=== PATIENT | male | born 1930 | race Caucasian/White ===

== ENCOUNTER 2017-07-13 06:38 | Inpatient (IN) | payer OTHER, MEDICARE ==
[2017-07-13] VITALS (17 sets, daily range): BP systolic 152–180; BP diastolic 89–112; PULSE 88–120; RESP 16–20; TEMP 97.6–97.9; O2SAT 95–99
[~2017-07-13] VITALS: Ht 167.6 cm; Wt 65.2 kg
[~2017-07-13 06:38] MED LIST: ATOR80TA45 PO; B12-1CHW PO; BACT800T5 PO; IBUP-232 PO; LISI-515 PO; METO25TA3 PO; PERC5TAB12 PO; VITA1000 PO; XARE20TA PO
--- NOTE | 2017-07-13 07:11 | PD ---
HPI Chief Complaint: Respiratory Symptoms Time Seen by Provider: 07:07 Travel History International Travel<30 days: No Contact w/Intl Traveler<30days: No Traveled to known affect area: No History of Present Illness HPI This is an 86-year-old male with a history of hypertension, hyperlipidemia, previous pulmonary emboli, who presents today with complaints of shortness of breath progressive over the last several weeks. Patient reports over the last 2 days it has become so severe that he could not sleep last night. Patient denies any chest pain, chest pressure he does report a productive cough but does not know what color his phlegm is but does report blood tinged. He also reports a fever of 101 last night. Patient also reports increasing swelling of his bilateral lower extremities. PFSH Past Medical History Hx Anticoagulant Therapy: Yes (XARELTO) Autoimmune Disease: No Cancer: No Cardiovascular Problems: Yes (CHOL) High Cholesterol: Yes Diabetes: No Diminished Hearing: Yes (Hearing aids) Endocrine: No Gout: Yes Genitourinary: No Hypertension: Yes Immune Disorder: No Musculoskeletal: Yes Neurologic: No Psychiatric: No Reproductive: No Respiratory: Yes (PE) Past Surgical History Appendectomy: Yes Other Surgery: Yes (BACK SX) Social History Alcohol Use: Yes (Rarely) Tobacco Use: No Substance Use: No Allergies-Medications (Allergen,Severity, Reaction): Coded Allergies: No Known Allergies (Verified Adverse Reaction, Unknown, 07/13/17) Reported Meds & Prescriptions Reported Meds & Active Scripts Active Reported Vitamin B-12 ER (Cyanocobalamin) 1,000 Mcg Tab 1,000 Mcg PO DAILY Vitamin D-1000 (Cholecalciferol) 1,000 Unit Tab 5,000 Units PO DAILY Atorvastatin (Atorvastatin Calcium) 80 Mg Tab 80 Mg PO HS Metoprolol Tartrate 25 Mg Tab 25 Mg PO DAILY Lisinopril 20 Mg Tab 20 Mg PO DAILY Review of Systems Except as stated in HPI: all other systems reviewed are Neg General / Constitutional: Positive: Fever, No: Chills HENT: No: Headaches, Neck Pain Cardiovascular: Positive: Tachycardia, No: Chest Pain or Discomfort, Palpitations Respiratory: Positive: Cough, Shortness of Breath Gastrointestinal: No: Nausea, Vomiting, Abdominal Pain Genitourinary: No: Dysuria, Decreased Urinary Output Musculoskeletal: Positive: Weakness, Edema (Bilateral lower extremities, worse on left than right.), No: Pain Neurologic: Positive: Weakness, No: Dizziness, Headache Physical Exam Narrative GENERAL: Well-developed well-nourished male in mild to moderate respiratory discomfort. SKIN: Focused skin assessment warm/dry. HEAD: Atraumatic. Normocephalic. EYES: No scleral icterus. No injection or drainage. ENT: No nasal bleeding or discharge. Mucous membranes pink and moist. NECK: Trachea midline. Supple. CARDIOVASCULAR: Sinus tachycardia with a rate of 115. No murmur appreciated. RESPIRATORY: No accessory muscle use. Clear to auscultation. Breath sounds equal bilaterally. GASTROINTESTINAL: Abdomen soft, non-tender, nondistended. MUSCULOSKELETAL: No obvious deformities. No clubbing. No cyanosis. Bilateral lower extremity pitting edema, slightly worse on left lower extremity than right. NEUROLOGICAL: Awake and alert. No obvious cranial nerve deficits. Motor grossly within normal limits. Normal speech. PSYCHIATRIC: Appropriate mood and affect; insight and judgment normal. Data Data Last Documented VS Vital Signs Date Time Temp Pulse Resp B/P (MAP) Pulse Ox O2 Delivery O2 Flow Rate FiO2 07/13/17 14:00 95 16 160/97 (118) 98 Nasal Cannula 2.00 07/13/17 06:46 97.9 Orders Orders Complete Blood Count With Diff (07/13/17 07:11) Comprehensive Metabolic Panel (07/13/17 07:11) B-Type Natriuretic Peptide (07/13/17 07:11) D-Dimer (07/13/17 07:11) Ckmb (Isoenzyme) Profile (07/13/17 07:11) Troponin I (07/13/17 07:11) Urinalysis - C+S If Indicated (07/13/17 07:11) Iv Access Insert/Monitor (07/13/17 07:11) Ecg Monitoring (07/13/17 07:11) Oximetry (07/13/17 07:11) Oxygen Administration (07/13/17 07:11) Chest, Single Ap (07/13/17 07:11) Sodium Chloride 0.9% Flush (Ns Flush) (07/13/17 07:15) Arterial Blood Gas (Abg) (07/13/17 07:45) Ventilation & Perfusion Scan (07/13/17 ) Lisinopril (Prinivil) (07/13/17 10:30) Metoprolol Tartrate (Lopressor) (07/13/17 10:30) Furosemide Inj (Lasix Inj) (07/13/17 12:30) Admit Order (Ed Use Only) (07/13/17 14:11) Labs Laboratory Tests Test 07/13/17 07:30 07/13/17 07:45 07/13/17 07:53 White Blood Count 3.8 TH/MM3 Red Blood Count 4.24 MIL/MM3 Hemoglobin 12.9 GM/DL Hematocrit 38.5 % Mean Corpuscular Volume 90.8 FL Mean Corpuscular Hemoglobin 30.4 PG Mean Corpuscular Hemoglobin Concent 33.5 % Red Cell Distribution Width 14.5 % Platelet Count 71 TH/MM3 Mean Platelet Volume 8.7 FL Neutrophils (%) (Auto) 67.5 % Lymphocytes (%) (Auto) 18.3 % Monocytes (%) (Auto) 13.4 % Eosinophils (%) (Auto) 0.0 % Basophils (%) (Auto) 0.8 % Neutrophils # (Auto) 2.6 TH/MM3 Lymphocytes # (Auto) 0.7 TH/MM3 Monocytes # (Auto) 0.5 TH/MM3 Eosinophils # (Auto) 0.0 TH/MM3 Basophils # (Auto) 0.0 TH/MM3 CBC Comment AUTO DIFF Differential Comment AUTO DIFF CONFIRMED Platelet Estimate LOW Platelet Morphology Comment NORMAL D-Dimer Quantitative (PE/DVT) 2.63 MG/L FEU Blood Urea Nitrogen 29 MG/DL Creatinine 1.80 MG/DL Random Glucose 93 MG/DL Total Protein 7.0 GM/DL Albumin 3.4 GM/DL Calcium Level 8.7 MG/DL Alkaline Phosphatase 99 U/L Aspartate Amino Transf (AST/SGOT) 27 U/L Alanine Aminotransferase (ALT/SGPT) 20 U/L Total Bilirubin 1.4 MG/DL Sodium Level 138 MEQ/L Potassium Level 4.5 MEQ/L Chloride Level 107 MEQ/L Carbon Dioxide Level 23.1 MEQ/L Anion Gap 8 MEQ/L Estimat Glomerular Filtration Rate 36 ML/MIN Total Creatine Kinase 59 U/L Troponin I 0.18 NG/ML B-Type Natriuretic Peptide 1195 PG/ML Urine Collection Type CLEAN CATCH Urine Color YELLOW Urine Turbidity CLEAR Urine pH 5.5 Urine Specific [place] 1.025 Urine Protein 100 mg/dL Urine Glucose (UA) NEG mg/dL Urine Ketones 15 mg/dL Urine Occult Blood SMALL Urine Nitrite NEG Urine Bilirubin NEG Urine Urobilinogen 0.2 MG/DL Urine Leukocyte Esterase NEG Urine RBC 0-3 /hpf Urine Squamous Epithelial Cells 0-5 /hpf Urine Amorphous Sediment FEW Microscopic Urinalysis Comment CULT NOT INDICATED Urine Collection Time 0745 Blood Gas Puncture Site LT RADIAL Blood Gas Patient Temperature 98.6 Blood Gas HCO3 18 mmol/L Blood Gas Base Excess -5.5 mmol/L Blood Gas Oxygen Saturation 92 % Arterial Blood pH 7.44 Arterial Blood Partial Pressure CO2 27 mmHG Arterial Blood Partial Pressure O2 69 mmHG Arterial Blood Oxygen Content 17.5 Vol % Arterial Blood Carboxyhemoglobin 1.5 % Arterial Blood Methemoglobin 1.1 % Blood Gas Hemoglobin 13.6 G/DL Oxygen Delivery Device ROOM AIR Blood Gas Inspired Oxygen 21 % [facility] Medical Decision Making Medical Screen Exam Complete: Yes Emergency Medical Condition: Yes Differential Diagnosis CHF versus COPD versus pneumonia versus pulmonary embolus Narrative Course 86-year-old male with a history of hypertension, hyperlipidemia, COPD, who presents today with complaints of shortness of breath progressive over last several weeks. Patient's EKG shows no evidence of acute ST elevation or depression. Chest x-ray shows congestive heart failure. Patient's d-dimer was elevated. Troponin was also 0.13. BNP was 1100. VQ scan was ordered secondary to the elevated creatinine. His VQ scan shows a ventilation defect not a perfusion defect. This would be consistent with his CHF. Patient will be admitted to the hospitalist service. Case discussed with Dr. Romeo who agrees with the admission. Diagnosis Primary Impression: New onset CHF Additional Impressions: Renal insufficiency Hypertension Hyperlipidemia Elevated troponin Admitting Information Admitting Physician Requests: Admit Heraclio Fritz MD July 13, 2017 07:11
[2017-07-13] MEDS ORDERED: SODIUM CHLORIDE 0.9% FLUSH 10 ML FLUSH IVF PRN (07:15)
[2017-07-13 07:38] LABS: AUTOMATED NEUTROPHIL # 2.6 TH/MM3 (1.8-7.7); BASOPHIL % 0.8 % (0.0-2.0); HEMATOCRIT 38.5 % (39.0-51.0); HEMOGLOBIN 12.9 GM/DL (13.0-17.0); LYMPH % 18.3 % (9.0-44.0); LYMPHOCYTE # 0.7 TH/MM3 (1.0-4.8); MEAN CELL VOLUME 90.8 FL (80.0-100.0); MEAN CORPUSCULAR HEMOGLOBIN 30.4 PG (27.0-34.0); MEAN CORPUSCULAR HGB CONC 33.5 % (32.0-36.0); MEAN PLATELET VOLUME 8.7 FL (7.0-11.0); MONO % 13.4 % (0.0-8.0); MONOCYTE # 0.5 TH/MM3 (0-0.9); NEUT % 67.5 % (16.0-70.0); PLATELET COUNT 71 TH/MM3 (150-450); RED BLOOD COUNT 4.24 MIL/MM3 (4.50-5.90); RED CELL DISTRIBUTION WIDTH 14.5 % (11.6-17.2); WHITE BLOOD COUNT 3.8 TH/MM3 (4.0-11.0)
--- NOTE | 2017-07-13 07:50 | RADRPT ---
EXAM DATE/TIME: 07/13/2017 07:30 [facility] COMPARISON: CHEST PA & LAT, December 21, 2015, 10:24. INDICATIONS : Short of breath, cough MEDICAL HISTORY : Hypertension. SURGICAL HISTORY : Appendectomy. ENCOUNTER: Initial ACUITY: 1 week PAIN SCORE: 0/10 LOCATION: Bilateral chest FINDINGS: AP upright portable view of the chest demonstrates a moderate-sized left-sided pleural effusion with adjacent compressive atelectasis versus consolidation. The right hemithorax demonstrate a subtle pleu ral effusion with ill-defined reticular airspace density involving predominately pain inferior right hemithorax. The heart size appears mildly enlarged as compared to the prior exam with prominence of t he central pulmonary vasculature. Osseous structures are significant for air range. CONCLUSION: Bilateral pleural effusions, small on the right and moderate on the left. Bilateral air space abnorma lities may be related to congestive heart failure versus secondary to infectious process. Hanna Adkins MD on July 13, 2017 at 7:44 Board Certified Radiologist. This report was verified electronically.
[2017-07-13 07:51] LABS: CHLORIDE 107 MEQ/L (98-107); SODIUM (NA) 138 MEQ/L (136-145)
[2017-07-13] MEDS ORDERED: VITA100022 PO (07:52)
[2017-07-13 07:54] LABS: ALBUMIN 3.4 GM/DL (3.4-5.0); BICARBONATE 23.1 MEQ/L (21.0-32.0); CALCIUM 8.7 MG/DL (8.5-10.1); GLUCOSE,RANDOM 93 MG/DL (74-106)
[2017-07-13 07:55] LABS: BLOOD UREA NITROGEN 29 MG/DL (7-18)
[2017-07-13 07:58] LABS: ALT (GPT) 20 U/L (12-78); AST (GOT) 27 U/L (15-37); GLOMERULAR FILTRATION RATE 36 ML/MIN (>89)
[2017-07-13 07:59] LABS: TOTAL BILIRUBIN ADULT 1.4 MG/DL (0.2-1.0)
[2017-07-13 07:59] LABS: BILIRUBIN, URINE NEG (NEG); BLOOD, URINE SMALL (NEG); GLUCOSE,URINE NEG (NEG); KETONE, URINE 15 mg/dL (NEG); NITRITE,URINE NEG (NEG); PH, URINE 5.5 (5.0-8.5); URINE COLOR YELLOW (YELLW/STRAW); URINE LEUKOCYTE ESTERASE NEG (NEG)
[2017-07-13 08:00] LABS: ALKALINE PHOSPHATASE 99 U/L (45-117)
[2017-07-13 08:02] LABS: TROPONIN I 0.18 NG/ML (0.02-0.05)
[2017-07-13 08:07] LABS: AMORPHOUS SEDIMENT, URINE FEW; RBC, URINE 0-3 /hpf (0-3); SQUAMOUS EPITHELIAL CELL URINE 0-5 /hpf (0-5)
[2017-07-13] MEDS ORDERED: LISINOPRIL 20 MG TAB PO ONE (10:30)
[2017-07-13] MEDS ORDERED: METOPROLOL TARTRATE 25 MG TAB PO ONE (10:30)
[2017-07-13] MEDS ORDERED: FUROSEMIDE 20 MG/2 ML VIAL IV PUSH ONE (12:30)
--- NOTE | 2017-07-13 14:11 | RADRPT ---
EXAM DATE/TIME: 07/13/2017 13:28 [facility] COMPARISON: CHEST SINGLE AP, July 13, 2017, 7:30. INDICATIONS : Short of breath for 3 weeks. DOSE: 8.2 mCi Tc99m MAA IV 1.2 mCi Tc99m DTPA aerosol MEDICAL HISTORY : Hypertension. SURGICAL HISTORY : Fusion, thoracic. ENCOUNTER: Initial ACUITY: 3 weeks PAIN SCALE: 3/10 LOCATION: Bilateral chest TECHNIQUE: Following five minutes of tidal breathing of DTPA aerosol, planar images of the lungs were performed in eight projections. The patient was then injected with MAA, and eight-view perfusio n scan was performed. FINDINGS: Ventilation inhomogeneous with absent ventilation left base. Perfusion is much better than ventilation the large matched ventilation/perfusion defect left base. CONCLUSION: Consolidation left lower lobe. Large ventilation perfusion match. Low to intermediate p robability. Lenny Persaud MD FACR on July 13, 2017 at 14:07 Board Certified Radiologist. This report was verified electronically.
[2017-07-13] MEDS ORDERED: SODIUM CHLORIDE 0.9% FLUSH 10 ML FLUSH IV FLUSH PRN (15:30)
--- NOTE | 2017-07-13 15:43 | HHI.HP ---
HPI Service [facility] Primary Care Physician Shaun Slater MD Admission Diagnosis chf, chronic kidney injury,l elevated troponin, hx of pe Diagnoses: (1) Congestive heart failure Diagnosis: Principal (2) Elevated troponin Diagnosis: Principal Chief Complaint: Lower extremity edema Travel History International Travel<30 Days: No Contact w/Intl Traveler <30 Da: No Traveled to Known Affected Are: No History of Present Illness 86-year-old male with known history of hypertension, hyperlipidemia, gouty arthritis who presented to the hospital because of lower extremity edema, chest tightness, shortness of breath, dyspnea on exertion. Patient states that for over 2-3 weeks he has been experiencing progressive lower extremity edema, dyspnea on exertion, chest discomfort. Patient states that he was evaluated by his medical billing assistant and primary medical doctor within the last 3 weeks as well. States that they have done multiple laboratory studies and they gave him some medication for treatment which he does not know the name of. He indicates that he started developing lower extremity edema with progressive dyspnea on exertion where he used to build walk 30 paces without resting, however now he cannot even get up and walk because he is so short of breath. Patient indicates that he is actually been feeling some pressure in the middle part of his chest without any radiation to the neck, back, shoulder, arm. He has had episodes of nausea, vomiting which he correlates with coughing. He states that he was also experiencing lightheaded dizziness during these last few weeks. Patient does not have a local iso coordinator. He has never been diagnosed with any congestive heart failure or myocardial infarction. Patient denies any previous cardiac workup with stress testing. Patient was concerned about his symptoms that were not get any better so he came to emergency department for evaluation. Workup did indicate significant swelling in his lower extremities, JVD, chest x-ray with pulmonary edema, bilateral effusions, mildly elevated troponin level. Because of those reasons is recommended patient be admitted for further evaluation and management. Review of Systems Respiratory: COMPLAINS OF: Cough, Hemoptysis, Shortness of breath Cardiovascular: COMPLAINS OF: Chest pain, Dyspnea on Exertion, Lower Extremity Edema Except as stated in HPI: all other systems reviewed are Neg Past Family Social History Past Medical History Hypertension Hyperlipidemia Gout History of pulmonary emboli Past Surgical History Appendectomy Reported Medications Reported Meds & Active Scripts Active Reported Vitamin B-12 ER (Cyanocobalamin) 1,000 Mcg Tab 1,000 Mcg PO DAILY Vitamin D-1000 (Cholecalciferol) 1,000 Unit Tab 5,000 Units PO DAILY Atorvastatin (Atorvastatin Calcium) 80 Mg Tab 80 Mg PO HS Metoprolol Tartrate 25 Mg Tab 25 Mg PO DAILY Lisinopril 20 Mg Tab 20 Mg PO DAILY Allergies: Coded Allergies: No Known Allergies (Verified Adverse Reaction, Unknown, 07/13/17) Family History Reviewed is significant for father having lung cancer, mother with vaginal cancer Social History Patient does have history of smoking back between 89 and 22. He does drink alcohol occasionally. Denies any illicit drug Physical Exam Vital Signs Vital Signs Date Time Temp Pulse Resp B/P (MAP) Pulse Ox O2 Delivery O2 Flow Rate FiO2 07/13/17 15:29 95 18 164/91 (115) 97 Nasal Cannula 2.00 07/13/17 14:00 95 16 160/97 (118) 98 Nasal Cannula 2.00 07/13/17 13:00 92 98 Nasal Cannula 2.00 07/13/17 13:00 90 16 167/100 (122) 07/13/17 11:58 88 16 158/97 (117) 98 Nasal Cannula 2.00 07/13/17 11:15 93 16 152/94 (113) 98 Nasal Cannula 2.00 07/13/17 11:04 99 16 98 Nasal Cannula 2.00 07/13/17 10:30 108 16 179/108 (131) 98 Nasal Cannula 2.00 07/13/17 09:43 109 18 178/100 (126) 97 Nasal Cannula 2.00 07/13/17 09:15 110 18 98 Nasal Cannula 2.00 07/13/17 09:15 111 16 180/109 (132) 98 Nasal Cannula 2.00 07/13/17 08:10 107 18 177/112 (133) 99 Nasal Cannula 2.00 07/13/17 07:43 18 98 Nasal Cannula 2.00 07/13/17 07:43 98 Nasal Cannula 2.00 07/13/17 07:15 115 18 95 Room Air 07/13/17 07:13 18 95 07/13/17 06:46 97.9 120 20 176/99 (124 96 Physical Exam GENERAL: Well-developed, well-nourished, in no acute distress. alert and orientated HEENT: Head is normocephalic without any lesions or masses noted. Facial features are symmetric. Eyes: Pupils equal round reactive to light. Extraocular muscles are intact. Conjunctivae were clear. Oropharyngeal: Pharynx without any erythema edema. Tongue is midline without deviation. Buccal mucosa is moist without any masses or lesions NECK: Supple without any masses. Trachea midline no deviation. No bruits are appreciated, JVD noted CARDIAC: Regular rhythm, regular rate. S1/S2 are heard. No murmurs gallops or rubs. LUNGS: Crackles noted bilaterally. No wheeze, rhonchi. No use of accessory muscles on inspiration or expiration. ABDOMEN: Soft, nontender. Nondistended. Bowel sounds heard in all 4 quadrants. No organomegaly or masses. Negative rebound, negative guarding EXTREMITIES: 3+ pitting edema noted bilaterally in the lower extremities, pulses are equal bilaterally. No cyanosis or clubbing NEUROLOGY: Mood and affect appear appropriate. Cranial nerves II through XII grossly intact. Muscle strength 5/5 in upper and lower extremities bilaterally. Deep tendon reflexes are 2+ in upper and lower extremities bilaterally. Laboratory Laboratory Tests Test 07/13/17 07:30 07/13/17 07:45 07/13/17 07:53 White Blood Count 3.8 Red Blood Count 4.24 Hemoglobin 12.9 Hematocrit 38.5 Mean Corpuscular Volume 90.8 Mean Corpuscular Hemoglobin 30.4 Mean Corpuscular Hemoglobin Concent 33.5 Red Cell Distribution Width 14.5 Platelet Count 71 Mean Platelet Volume 8.7 Neutrophils (%) (Auto) 67.5 Lymphocytes (%) (Auto) 18.3 Monocytes (%) (Auto) 13.4 Eosinophils (%) (Auto) 0.0 Basophils (%) (Auto) 0.8 Neutrophils # (Auto) 2.6 Lymphocytes # (Auto) 0.7 Monocytes # (Auto) 0.5 Eosinophils # (Auto) 0.0 Basophils # (Auto) 0.0 CBC Comment AUTO DIFF Differential Comment AUTO DIFF CONFIRMED Platelet Estimate LOW Platelet Morphology Comment NORMAL D-Dimer Quantitative (PE/DVT) 2.63 Blood Urea Nitrogen 29 Creatinine 1.80 Random Glucose 93 Total Protein 7.0 Albumin 3.4 Calcium Level 8.7 Alkaline Phosphatase 99 Aspartate Amino Transf (AST/SGOT) 27 Alanine Aminotransferase (ALT/SGPT) 20 Total Bilirubin 1.4 Sodium Level 138 Potassium Level 4.5 Chloride Level 107 Carbon Dioxide Level 23.1 Anion Gap 8 Estimat Glomerular Filtration Rate 36 Total Creatine Kinase 59 Troponin I 0.18 B-Type Natriuretic Peptide 1195 Urine Collection Type CLEAN CATCH Urine Color YELLOW Urine Turbidity CLEAR Urine pH 5.5 Urine Specific [place] 1.025 Urine Protein 100 Urine Glucose (UA) NEG Urine Ketones 15 Urine Occult Blood SMALL Urine Nitrite NEG Urine Bilirubin NEG Urine Urobilinogen 0.2 Urine Leukocyte Esterase NEG Urine RBC 0-3 Urine Squamous Epithelial Cells 0-5 Urine Amorphous Sediment FEW Microscopic Urinalysis Comment CULT NOT INDICATED Urine Collection Time 0745 Blood Gas Puncture Site LT RADIAL Blood Gas Patient Temperature 98.6 Blood Gas HCO3 18 Blood Gas Base Excess -5.5 Blood Gas Oxygen Saturation 92 Arterial Blood pH 7.44 Arterial Blood Partial Pressure CO2 27 Arterial Blood Partial Pressure O2 69 Arterial Blood Oxygen Content 17.5 Arterial Blood Carboxyhemoglobin 1.5 Arterial Blood Methemoglobin 1.1 Blood Gas Hemoglobin 13.6 Oxygen Delivery Device ROOM AIR Blood Gas Inspired Oxygen 21 Result Diagram: 07/13/17 0730 07/13/17 0730 Imaging Last Impressions Chest X-Ray 07/13/17 0711 Signed Impressions: Service Date/Time: Thursday, July 13, 2017 07:30 - CONCLUSION: Bilateral pleural effusions, small on the right and moderate on the left. Bilateral air space abnormalities may be related to congestive heart failure versus secondary to infectious process. Hanna Adkins MD Lung Scan- Nuclear Medicine 07/13/17 0000 Signed Impressions: Service Date/Time: Thursday, July 13, 2017 13:28 - CONCLUSION: Consolidation left lower lobe. Large ventilation perfusion match. Low to intermediate probability. Lenny Persaud MD FACR Caprini VTE Risk Assessment Caprini VTE Risk Assessment: Mod/High Risk (score >= 2) Caprini Risk Assessment Model Point Value = 1 Point Value = 2 Point Value = 3 Point Value = 5 Age 41-60 Minor surgery BMI > 25 kg/m2 Swollen legs Varicose veins or History of unexplained or recurrent spontaneous Oral contraceptives or hormone replacement Sepsis (< 1 month) Serious lung disease, including pneumonia (< 1 month) Abnormal pulmonary function Acute myocardial infarction Congestive heart failure (< 1 month) History of inflammatory bowel disease Medical patient at bed rest Age 61-74 Arthroscopic surgery Major open surgery (> 45 min) Laparoscopic surgery (> 45 min) Malignancy Confined to bed (> 72 hours) Immobilizing plaster cast Central venous access Age >= 75 History of VTE Family history of VTE Factor V Leiden Prothrombin [id number] Lupus anticoagulant Anticardiolipin antibodies Elevated serum homocysteine Heparin-induced thrombocytopenia Other congenital or acquired thrombophilia Stroke (< 1 month) Elective arthroplasty Hip, pelvis, or leg fracture Acute spinal cord injury (< 1 month) Prophylaxis Regimen Total Risk Factor Score Risk Level Prophylaxis Regimen 0-1 Low Early ambulation 2 Moderate Order ONE of the following: *Sequential Compression Device (SCD) *Heparin 5000 units SQ BID 3-4 Higher Order ONE of the following medications: *Heparin 5000 units SQ TID *Enoxaparin/Lovenox 40 mg SQ daily (WT < 150 kg, CrCl > 30 mL/min) *Enoxaparin/Lovenox 30 mg SQ daily (WT < 150 kg, CrCl > 10-29 mL/min) *Enoxaparin/Lovenox 30 mg SQ BID (WT < 150 kg, CrCl > 30 mL/min) AND/OR *Sequential Compression Device (SCD) 5 or more Highest Order ONE of the following medications: *Heparin 5000 units SQ TID (Preferred with Epidurals) *Enoxaparin/Lovenox 40 mg SQ daily (WT < 150 kg, CrCl > 30 mL/min) *Enoxaparin/Lovenox 30 mg SQ daily (WT < 150 kg, CrCl > 10-29 mL/min) *Enoxaparin/Lovenox 30 mg SQ BID (WT < 150 kg, CrCl > 30 mL/min) AND *Sequential Compression Device (SCD) Assessment and Plan Assessment and Plan Acute congestive heart failure, new onset -Chest x-ray does indicate bilateral pleural effusions, bilateral ill space abnormalities related to congestive heart failure -Patient with physical findings of lower extremity edema, JVD -BNP 1195 -Patient also has mild troponin elevation, could possible be underlying myocardial infarction -We will continue Lasix 40 mg IV every 12 hours -Obtain echocardiogram -Continue beta-nancy, ANTELMO inhibitor, add Nitropaste -Consult cardiology for recommendations Troponin elevation -EKGs do indicate some abnormality with show inverted T waves in V1, V5, V6. No previous EKGs to compare -Continue to trend cardiac enzymes and EKGs -Patient be started on aspirin, continue beta-nancy, ANTELMO inhibitor, statin, Nitropaste -Await cardiology recommendations Chronic kidney disease stage III, appears to be stable -Continue to monitor renal function -Avoid nephrotoxic medication Hypertension, hyperlipidemia, -Home medications continued History of pulmonary emboli -VQ scan shows ventilation defect, however no perfusion defect. This would go along with the congestive heart failure with low probability for pulmonary emboli DVT prevention -Sequential compression devices Physician Certification 2 Midnight Certification Type: Admission for Inpatient Services Order for Inpatient Services The services are ordered in accordance with Medicare regulations or non- Medicare payer requirements, as applicable. In the case of services not specified as inpatient-only, they are appropriately provided as inpatient services in accordance with the 2-midnight benchmark. Estimated LOS (days): 3 days is the estimated time the patient will need to remain in the hospital, assuming treatment plan goals are met and no additional complications. Post-Hospital Plan: Not yet determined Ronald Vega July 13, 2017 15:43
[2017-07-13] MEDS ORDERED: MAGNESIUM HYDROXIDE SUSP 30 ML CUP PO PRN (15:45)
[2017-07-13] MEDS ORDERED: CALCIUM CARBONATE 500 MG CHEWABLE TAB CHEW PRN (15:45)
[2017-07-13] MEDS ORDERED: ACETAMINOPHEN 325 MG TAB PO PRN (15:45)
[2017-07-13] MEDS ORDERED: DOCUSATE SODIUM 100 MG CAP PO PRN (15:45)
[2017-07-13] MEDS ORDERED: ONDANSETRON HCL 4 MG/2 ML VIAL IV PUSH PRN (15:45)
[2017-07-13] MEDS ORDERED: TEMAZEPAM 15 MG CAP PO PRN (15:45)
[2017-07-13] MEDS: FUROSEMIDE 40 MG/4 ML VIAL IVP SCH (18:24)
[2017-07-13] MEDS: NITROGLYCERIN 2% OINT 1 GM PACKET TOPICAL SCH ×2 (18:24→23:00)
[2017-07-13] MEDS ORDERED: POTASSIUM CHLORIDE 20 MEQ CONTROLLED RELEASE TAB PO SCH (21:00)
[2017-07-13] MEDS: SODIUM CHLORIDE 0.9% FLUSH 10 ML FLUSH IV FLUSH SCH (22:59)
[2017-07-13] MEDS: ATORVASTATIN 40 MG TAB PO SCH (22:59)
[2017-07-13] MEDS: METOPROLOL TARTRATE 25 MG TAB PO SCH (23:00)
[2017-07-13] MEDS: POTASSIUM CHLORIDE 20 MEQ CONTROLLED RELEASE TAB PO SCH (23:00)
[2017-07-14] VITALS (9 sets, daily range): BP systolic 118–148; BP diastolic 77–92; PULSE 85–112; RESP 15–18; TEMP 97.6–99.3; O2SAT 92–98
[2017-07-14] MEDS: NITROGLYCERIN 2% OINT 1 GM PACKET TOPICAL SCH ×4 (06:07→23:29)
[2017-07-14 08:02] LABS: CALCIUM 8.9 MG/DL (8.5-10.1)
[2017-07-14 08:03] LABS: BICARBONATE 25.1 MEQ/L (21.0-32.0); MAGNESIUM 1.7 MG/DL (1.5-2.5)
[2017-07-14] MEDS ORDERED: METOPROLOL TARTRATE 25 MG TAB PO SCH (09:00)
[2017-07-14] MEDS ORDERED: ASPIRIN 81 MG CHEW TAB CHEW SCH (09:00)
--- NOTE | 2017-07-14 09:17 | HHI.PR ---
Subjective Remarks Patient seen and examined today for follow-up on non-ST elevated myocardial infarction, new onset congestive heart failure, shortness of breath, peripheral edema. Patient is laying in bed comfortable. States that he still getting short of breath whenever he gets up to ambulate. Still with lower extremity edema. Vital signs are stable, patient remains afebrile Objective Vitals Vital Signs Date Time Temp Pulse Resp B/P (MAP) Pulse Ox O2 Delivery O2 Flow Rate FiO2 07/14/17 09:04 97.8 96 18 133/79 (97) 98 07/14/17 04:00 99.0 85 15 147/92 (110) 98 07/14/17 00:00 97.8 112 15 147/92 (110) 92 07/13/17 20:30 109 07/13/17 20:02 95 Nasal Cannula 2.00 07/13/17 20:00 97.6 105 17 152/89 (110) 95 07/13/17 16:45 97.7 104 20 179/99 (125) 96 07/13/17 16:30 07/13/17 15:30 97 Nasal Cannula 2.00 07/13/17 15:29 95 18 164/91 (115) 97 Nasal Cannula 2.00 07/13/17 15:00 85 16 97 Nasal Cannula 2.00 07/13/17 14:00 95 16 160/97 (118) 98 Nasal Cannula 2.00 07/13/17 13:00 92 98 Nasal Cannula 2.00 07/13/17 13:00 90 16 167/100 (122) 07/13/17 11:58 88 16 158/97 (117) 98 Nasal Cannula 2.00 07/13/17 11:15 93 16 152/94 (113) 98 Nasal Cannula 2.00 07/13/17 11:04 99 16 98 Nasal Cannula 2.00 07/13/17 10:30 108 16 179/108 (131) 98 Nasal Cannula 2.00 07/13/17 09:43 109 18 178/100 (126) 97 Nasal Cannula 2.00 07/13/17 09:15 110 18 98 Nasal Cannula 2.00 07/13/17 09:15 111 16 180/109 (132) 98 Nasal Cannula 2.00 I/O 07/13/17 07/13/17 07/13/17 07/14/17 07/14/17 07/14/17 07:00 15:00 23:00 07:00 15:00 23:00 Intake Total 240 ml Output Total 600 ml Balance -360 ml Intake Oral 240 ml Output Urine Total 600 ml # Voids 2 2 # Bowel Movements 1 Result Diagram: 07/13/17 0730 07/14/17 0700 Objective Remarks GENERAL: Well-developed, well-nourished, in no acute distress. alert and orientated HEENT: Head is normocephalic without any lesions or masses noted. Facial features are symmetric. Eyes: Extraocular muscles are intact. Conjunctivae were clear. NECK: Supple without any masses. Trachea midline no deviation. No JVD, CARDIAC: Regular rhythm, regular rate. S1/S2 are heard. 2/6 ejection murmur noted in the mitral region, no gallops or rubs. LUNGS: Clear to auscultation bilaterally. No wheeze, rhonchi or rales. No use of accessory muscles on inspiration or expiration. ABDOMEN: Soft, nontender. Nondistended. Bowel sounds heard in all 4 quadrants. No organomegaly or masses. Negative rebound, negative guarding EXTREMITIES: 2+ bilateral lower extremity edema, pulses are equal bilaterally. No cyanosis or clubbing NEUROLOGY: Mood and affect appear appropriate. Cranial nerves II through XII grossly intact. Moving all extremities, speech is clear Urinary Catheter: No Vascular Central Line Catheter: No A/P Assessment and Plan Acute congestive heart failure, new onset -Chest x-ray does indicate bilateral pleural effusions, bilateral ill space abnormalities related to congestive heart failure -Patient with physical findings of lower extremity edema, JVD -BNP 1195 -Patient also has mild troponin elevation, could possible be underlying myocardial infarction -Continue Lasix 40 mg IV every 12 hours -Awaiting echocardiogram -Continue beta-nancy, ANTELMO inhibitor, Nitropaste -Consult cardiology for recommendations -Chiropractor Sole Practitioner requesting school physical therapist evaluation due to history of PE and pleural effusions Non-ST elevated myocardial infarction -EKGs do indicate some abnormality with show inverted T waves in V1, V5, V6. No previous EKGs to compare -Cardiac enzymes continue to be elevated. 0.22 -Continue aspirin, beta-nancy, ANTELMO inhibitor, statin, Nitropaste -Cardiology evaluated the patient Chronic kidney disease stage III, appears to be stable -Continue to monitor renal function -Avoid nephrotoxic medication -Cardiology consulted nephrology for evaluation. Hypertension, hyperlipidemia, -Home medications continued History of pulmonary emboli -VQ scan shows ventilation defect, however no perfusion defect. This would go along with the congestive heart failure with low probability for pulmonary emboli DVT prevention -Sequential compression devices Ronald Vega July 14, 2017 09:17
[2017-07-14] MEDS: METOPROLOL TARTRATE 25 MG TAB PO SCH ×2 (09:26→21:16)
[2017-07-14] MEDS: POTASSIUM CHLORIDE 20 MEQ CONTROLLED RELEASE TAB PO SCH ×2 (09:26→21:17)
[2017-07-14] MEDS: LISINOPRIL 20 MG TAB PO SCH (09:26)
[2017-07-14] MEDS: SODIUM CHLORIDE 0.9% FLUSH 10 ML FLUSH IV FLUSH SCH ×2 (09:27→20:00)
[2017-07-14] MEDS: FUROSEMIDE 40 MG/4 ML VIAL IVP SCH (09:27)
--- NOTE | 2017-07-14 09:59 | MB ---
cc: Fred rByant MD DATE: 07/14/2017 REASON FOR CONSULTATION: Evaluation of congestive heart failure. HISTORY OF PRESENT ILLNESS: This is an 86-year-old man with multiple medical problems. He has hypertension and a history of ITP, hyperlipidemia, gout, and had a pulmonary embolism 12/2015. He has been coughing up blood for the past week and a half and has been seeing Dr. Danielson as an outpatient. He has been having shortness of breath for months. He has been having lower extremity edema for a few weeks. Shortness of breath has gotten worse and so he decided to come into the hospital. He has a large left pleural effusion by chest x-ray. He has peripheral edema. He also has some intermittent chest pressure and a troponin is mildly elevated. He has had weight loss. PAST MEDICAL HISTORY: Includes hypertension, ITP, hyperlipidemia, gout, pulmonary embolism 2015, weakness of the left leg. PAST SURGICAL HISTORY: Back surgery, previous appendectomy. FAMILY HISTORY: Positive for lung cancer in the father. Vaginal cancer in the mother. SOCIAL HISTORY: He quit smoking at age 22. 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 PHYSICAL EXAMINATION: GENERAL: Well-developed, well-nourished man in no acute distress. HEENT: Unremarkable. NECK: I do not see obvious neck vein distention. There are no bruits. CHEST: Shows diminished breath sounds at the left base. CARDIAC: S1, S2, regular rate and rhythm. I do not hear an S3. ABDOMEN: Soft. EXTREMITIES: Reveal 1-2+ edema. LABORATORY DATA: Chest x-ray is very abnormal. See report. There is a left lower lobe effusion. Hematocrit 38.5. Creatinine is 2, and it was 1.8 on the , it was 2 in 12/2015. Troponins 0.20 and 0.22. Magnesium 1.7. D-dimer is elevated at 2.63. He had a V/Q scan read as matched ventilation perfusion defect left base. CTA was not performed. IMPRESSION: Severely ill 86-year-old man short of breath, lower extremity edema, mildly elevated troponin, history of pulmonary embolism with hemoptysis, indeterminate V/Q scan, elevated creatinine. RECOMMENDATIONS: Would like to get pulmonary and renal consultation. Concerned that he may have had a recent or fresh PE. V/Q scan not helpful. I am not able to do CTA with elevated creatinine. We will get a stat echo to assess his LV function. I am not sure how much of this is heart failure, how much of this could be a possible pulmonary embolism. Platelet count is only 71,000. Not a good candidate for catheterization due to ITP and elevated creatinine. He is on an ANTELMO inhibitor. We will see if renal thinks that should be stopped or continued. Further therapy to be determined. Fred Bryant MD VEW/TL , 09:05 AM , 09:58 AM
--- NOTE | 2017-07-14 13:49 | PD.CONS ---
[facility] Service Nephrology Consult Requested By Dr. Bryant Reason for Consult Acute renal failure Primary Care Physician Shaun Slater MD History of Present Illness Patient is a 86-year-old male with known history of hypertension, hyperlipidemia , hx pulmonary emboli not on anticoagulation, and gouty arthritis. He presented to emergency room for shortness of breath, lower extremity edema, and chest tightness. Nephrology is consulted for elevated creatinine of 2.0 today and on admission creatinine of 1.80. Patient reports that he has been told that he has chronic kidney disease for over 5 years. He is followed by Dr. Joel outpatient and was seen about 2 months ago. Per records patient has a creatinine of 1.6 in December 2015. So he is perhaps close to baseline. Potassium is normal. Chest Xray with bilateral pleural effusions, small on the right and moderate on the left. Bilateral air space abnormalities may be related to congestive heart failure versus secondary to infectious process. With history of pulmonary embolism and symptoms VQ scan was done showing low to intermediate probability. (Prisca Hall) Review of Systems Constitutional: COMPLAINS OF: Fatigue Respiratory: COMPLAINS OF: Hemoptysis, Sputum production, Shortness of breath Cardiovascular: COMPLAINS OF: Lower Extremity Edema Gastrointestinal: DENIES: Constipation, Diarrhea, Nausea, Vomiting Genitourinary: DENIES: Urgency, Dysuria, Nocturia (Prisca Hall) Past Family Social History Allergies: Coded Allergies: No Known Allergies (Verified Adverse Reaction, Unknown, 07/13/17) Past Medical History Hypertension Hyperlipidemia Gout History of pulmonary emboli Past Surgical History Back surgery Appendectomy Active Ordered Medications Current Medications Medications (Trade) Dose Ordered Sig/Mari Route Start Time Stop Time Status Last Admin (NS Flush) 2 ml BID IV FLUSH 07/13/17 21:00 07/14/17 09:27 (NS Flush) 2 ml UNSCH PRN IV FLUSH 07/13/17 15:30 (Lasix Inj) 40 mg BID@ IVP 07/13/17 18:00 07/14/17 09:27 (Aspirin Chew) 81 mg DAILY CHEW 07/14/17 09:00 07/14/17 09:26 (Lipitor) 80 mg HS PO 07/13/17 21:00 07/13/17 22:59 (Prinivil) 20 mg DAILY PO 07/14/17 09:00 07/14/17 09:26 (Tylenol) 650 mg Q4H PRN PO 07/13/17 15:45 (Zofran Inj) 4 mg Q6H PRN IV PUSH 07/13/17 15:45 (Colace) 100 mg BID PRN PO 07/13/17 15:45 (Milk Of Magnesia Liq) 30 ml DAILY PRN PO 07/13/17 15:45 (Tums Chew) 1,000 mg TID PRN CHEW 07/13/17 15:45 (Restoril) 15 mg HS PRN PO 07/13/17 15:45 (Nitroglycerin 2% Oint) 0.5 inch Q6HR TOPICAL 07/13/17 18:00 07/14/17 12:43 (Lopressor) 25 mg BID PO 07/13/17 21:00 07/14/17 09:26 (KCl) 20 meq Q12HR PO 07/13/17 21:00 07/14/17 09:26 Family History Father having lung cancer, mother with vaginal cancer Social History Quit smoking in his 's Occasional ETOH use Lives with (Prisca Hall) Physical Exam Vital Signs Vital Signs Date Time Temp Pulse Resp B/P (MAP) Pulse Ox O2 Delivery O2 Flow Rate FiO2 07/14/17 13:13 98.9 87 18 118/77 (91) 98 07/14/17 13:02 97 Nasal Cannula 2.00 07/14/17 09:04 97.8 96 18 133/79 (97) 98 07/14/17 04:00 99.0 85 15 147/92 (110) 98 07/14/17 00:00 97.8 112 15 147/92 (110) 92 07/13/17 20:30 109 07/13/17 20:02 95 Nasal Cannula 2.00 07/13/17 20:00 97.6 105 17 152/89 (110) 95 07/13/17 16:45 97.7 104 20 179/99 (125) 96 07/13/17 16:30 07/13/17 15:30 97 Nasal Cannula 2.00 07/13/17 15:29 95 18 164/91 (115) 97 Nasal Cannula 2.00 07/13/17 15:00 85 16 97 Nasal Cannula 2.00 07/13/17 14:00 95 16 160/97 (118) 98 Nasal Cannula 2.00 Physical Exam GENERAL: alert and oriented SKIN: Warm and dry. HEAD: Normocephalic. EYES: No scleral icterus. No injection or drainage. NECK: Supple, trachea midline. No JVD or lymphadenopathy. CARDIOVASCULAR: Regular rate and rhythm without murmurs, gallops, or rubs. RESPIRATORY: Breath sounds with rhonchi equal bilaterally. No accessory muscle use. GASTROINTESTINAL: Abdomen soft, non-tender, nondistended. MUSCULOSKELETAL: No cyanosis. Mild lower extremity edema BACK: Nontender without obvious deformity. No CVA tenderness. Laboratory Laboratory Tests Test 07/13/17 15:40 07/13/17 21:35 07/14/17 07:00 Total Creatine Kinase 55 80 Troponin I 0.20 0.22 Blood Urea Nitrogen 36 Creatinine 2.00 Random Glucose 125 Calcium Level 8.9 Magnesium Level 1.7 Sodium Level 136 Potassium Level 4.0 Chloride Level 101 Carbon Dioxide Level 25.1 Anion Gap 10 Estimat Glomerular Filtration Rate 32 (Prisca Hall) Result Diagram: 07/13/17 0730 07/14/17 0700 Imaging Last Impressions Chest X-Ray 07/13/17 0711 Signed Impressions: Service Date/Time: Thursday, July 13, 2017 07:30 - CONCLUSION: Bilateral pleural effusions, small on the right and moderate on the left. Bilateral air space abnormalities may be related to congestive heart failure versus secondary to infectious process. Hanna Adkins MD Lung Scan- Nuclear Medicine 07/13/17 0000 Signed Impressions: Service Date/Time: Thursday, July 13, 2017 13:28 - CONCLUSION: Consolidation left lower lobe. Large ventilation perfusion match. Low to intermediate probability. Lenny Persaud MD FACR (Prisca Hall) Assessment and Plan Problem List: (1) Renal insufficiency ICD Codes: N28.9 - Disorder of kidney and ureter, unspecified Status: Acute Plan: Elevated creatinine of 2.0 today and on admission creatinine of 1.80. He is followed by Dr. Joel outpatient and was seen about 2 months ago. Per records patient has a creatinine of 1.6 in December 2015. So he is perhaps close to baseline. Has chronic kidney disease from possible hypertension or renovascular disease. Proteinuria noted. Will order renal scan Continue lisinopril patient is perhaps close to baseline Continue lasix BID still has lower extremity edema Monitor Urinary output and BMP Dr. Joel to follow up tomorrow. (2) Hypertension ICD Codes: I10 - Essential (primary) hypertension Status: Acute Plan: Continue current medication regimen (3) Congestive heart failure ICD Codes: I50.9 - Heart failure, unspecified Plan: Cardiology consulted ECHO planned for tomorrow (4) Pleural effusion ICD Codes: J90 - Pleural effusion, not elsewhere classified Plan: Pulmonary consulted and managing. (Prisca Hall) Problem List: (1) Renal insufficiency ICD Codes: N28.9 - Disorder of kidney and ureter, unspecified Status: Acute Plan: Elevated creatinine of 2.0 today and on admission creatinine of 1.80. He is followed by Dr. Joel outpatient and was seen about 2 months ago. Per records patient has a creatinine of 1.6 in December 2015. So he is perhaps close to baseline. Has chronic kidney disease from possible hypertension or renovascular disease. Proteinuria noted. Will order renal scan Continue lisinopril patient is perhaps close to baseline Continue lasix BID still has lower extremity edema Monitor Urinary output and BMP Dr. Joel to follow up tomorrow. Patient seen and examined, agree with above. Continue diuretics and follow the BMP. (2) Hypertension ICD Codes: I10 - Essential (primary) hypertension Status: Acute Plan: Continue current medication regimen (3) Congestive heart failure ICD Codes: I50.9 - Heart failure, unspecified Plan: Cardiology consulted ECHO planned for tomorrow (4) Pleural effusion ICD Codes: J90 - Pleural effusion, not elsewhere classified Plan: Pulmonary consulted and managing. (Eren Vaughan MD) Prisca Hall July 14, 2017 13:49 Eren Vaughan MD July 15, 2017 10:44
[2017-07-14 13:58] LABS: CHOLESTEROL/ HDL RATIO 3.12 RATIO; HDL CHOLESTEROL 40.6 MG/DL (40.0-60.0)
--- NOTE | 2017-07-14 15:18 | MB ---
cc: Honey Stanton MD,Damien Bryant,Fred James MD DATE: 07/14/2017 HISTORY OF PRESENT ILLNESS: Mr. Villalba is an 86-year-old white male who presented with hemoptysis of rather sudden onset, although he has been gradually declining over the last several weeks, possibly even several months. He presented with some chest discomfort on the left side. Chest x-ray revealed a large left pleural effusion and a ventilation perfusion scan was performed because his creatinine was 2 and he had a history of pulmonary embolism in 2016, but that is not definitive because he has got a large matched defect at the left base. Otherwise, perfusion is normal. The patient also had an elevated troponin. Cardiology has seen him. BNP was also elevated to over 1000, although he has no evidence of clinical heart failure. The patient's complaints actually go back several months. He has been gradually more short of breath, has had some increased edema in both legs. Nonproductive cough until yesterday when he developed hemoptysis, but it was mixed with some sputum. It was blood streaked. There were no large blood clots. He is on no anticoagulation. In 2016, he presented here after a long road trip with a right lower lobe pulmonary embolism. He was anticoagulated for about 6 months and then that was discontinued. At present, he is sitting up in his bed, very comfortable. He is on room air, having no chest pain. No recurrent hemoptysis here in the hospital, and comfortable at rest without shortness of breath. No chest pain today. Swelling has diminished. PAST MEDICAL HISTORY: Hypertension, ITP. He cannot recall the director emergency services's name. Hyperlipidemia, history of gout, pulmonary embolism as noted above. PAST SURGICAL HISTORY: He has had a previous back surgery and an appendectomy when he was young. FAMILY HISTORY: Positive for lung cancer in his father. Mother had or gynecologic cancer. Son here in the room with him in good health. SOCIAL HISTORY: , living with his . Smoked a few years in his youth, quit at 22. 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 No significant alcohol use. No recent travel. REVIEW OF SYSTEMS: No headache. No chest pain. No notable fever. He has been gradually more short of breath over time, has had intermittent dizziness and lightheadedness. No current GI symptoms. Swelling in his legs, both legs. No pain. MEDICATIONS: Aspirin 81 mg, lisinopril, a statin, Lopressor, Lasix, nitroglycerin ointment. PHYSICAL EXAMINATION: GENERAL: The patient is awake, alert, very comfortable. No shortness of breath at rest currently. VITAL SIGNS: O2 saturation on 2 liters 98%, temperature is 98, pulse is 80, respirations 18, blood pressure 118/77. HEENT: Sclerae are anicteric. Mucous membranes are moist. NECK: His neck veins are flat. There is no adenopathy in the neck or supraclavicular region. CHEST: Diminished at the left base with some minor congestion. No wheezes. The right lung is clear. HEART: Regular rhythm. No harsh murmur. No audible S3. ABDOMEN: Soft. No hepatosplenomegaly or mass palpable. EXTREMITIES: Very minimal peripheral edema. No calf tenderness. No cyanosis or clubbing. DISCUSSION: Mr. Villalba presents with increased shortness of breath over weeks to months, gradual increase in lower extremity edema and hemoptysis yesterday, which brought him to the hospital. Chest x-ray with a large left pleural effusion. D-dimer is elevated. Troponin is mildly elevated. BNP is markedly elevated. The picture is unclear. Cardiology is seeing him to see if there is any evidence of ischemia. In addition, he may have underlying pneumonia. He could certainly have a left lower lobe malignancy hidden behind his fluid. He may have recurrent thromboembolism. It is not clear. I have reviewed this with the hospitalist. We will do Dopplers today to see if there is any evidence of DVT. I have also spoken to radiology. We need to proceed first thing in the morning with drainage of the left chest and then either a CT scan or a CTA depending on the results of the Dopplers today. We need to see what is going on in that left lower lobe, as he could have an underlying malignancy. We are going to give him gentle hydration in light of the elevated creatinine. I am going to hold the Lasix today as he is clearly not in any significant symptomatic congestive heart failure, and I do not want the creatinine to bump between now and tomorrow. Depending on the results, he also needs a thoracentesis. I have ordered that to put that into the computer, and I have also talked to radiology so they do that first thing in the morning. He has actually seen Dr. Danielson as an outpatient prior to this admission. He will follow up tomorrow. Further diagnostic and/or therapeutic intervention will depend on these results. I have thoroughly reviewed this with the patient and his family, explained to them that we are looking for answers. These tests are necessary for that purpose, although there are some risks, both from the thoracentesis and for that matter, from dye administration for the CTA if we have to proceed with that. R. MD ABBY Mahtew/JETHRO , 02:48 PM , 03:17 PM
[2017-07-14] MEDS: SODIUM CHLOR 0.9% 1000 ML INJ 1,000 ML IV SCH (15:58)
--- NOTE | 2017-07-14 17:17 | EKG ---
Date Performed: 07/13/2017 Time Performed: 21:33:10 PTAGE: 86 years EKG: SINUS TACHYCARDIA WITH OCCASIONAL SUPRAVENTRICULAR PREMATURE COMPLEXES POSSIBLE LEFT ATRIAL ENLARGEMENT MODERATE INTRAVENTRICULAR CONDUCTION DELAY ST DEVIATION AND MODERATE T-WAVE ABNORMALITY ABNORMAL ECG PREVIOUS TRACING : 07/13/2017 15.03 Since the previous tracing, no significant change noted DOCTOR: To Marcus Interpretating Date/Time 07/14/2017 17:16:24
--- NOTE | 2017-07-14 17:38 | EKG ---
Date Performed: 07/13/2017 Time Performed: 15:03:31 PTAGE: 86 years EKG: Sinus rhythm WITH SHORT AL INTERVAL WITH OCCASIONAL SUPRAVENTRICULAR PREMATURE COMPLEXES POSSIBLE LEFT ATRIAL ENL ARGEMENT MODERATE INTRAVENTRICULAR CONDUCTION DELAY ST DEVIATION AND MODERATE T-WAVE ABNORMALITY ABNO RMAL ECG NO PREVIOUS TRACING DOCTOR: To Marcus Interpretating Date/Time 07/14/2017 17:37:21
--- NOTE | 2017-07-14 19:03 | RADRPT ---
EXAM DATE/TIME: 07/14/2017 18:02 [facility] COMPARISON: No previous studies available for comparison. INDICATIONS : Increased BUN/Creatnine. MEDICAL HISTORY : Hypercholesterolemia. Hypertension. Hearing aids. Bifocals. Anticoagulant therapy, xarelto. Dyspnea . GOUT. Arthritis. SURGICAL HISTORY : Appendectomy. Back surgery. ENCOUNTER: Initial ACUITY: 1 day PAIN SCORE: 0/10 LOCATION: Bilateral flank MEASUREMENTS: RIGHT KIDNEY: 8.9 x 4.6 x 4.8 cm LEFT KIDNEY: 9.4 x 5.3 x 5.5 cm FINDINGS: RIGHT KIDNEY: Renal cortex is normal in thickness and increased echotexture. No hydronephrosis or mass. 6 mm ech ogenic structure. Right pleural effusion. LEFT KIDNEY: Renal cortex is normal in thickness and increased echotexture. No hydronephrosis, stone, or mass. L eft pleural effusion. BLADDER: Within normal limits given the degree of distension. CONCLUSION: 1. Pleural effusions. 2. Possible 6 mm right renal calculus. 3. Echogenic kidneys which can be seen with medical renal disease. Meng Potter MD on July 14, 2017 at 18:59 Board Certified Radiologist. This report was verified electronically.
--- NOTE | 2017-07-14 19:05 | RADRPT ---
EXAM DATE/TIME: 07/14/2017 18:18 [facility] COMPARISON: No previous studies available for comparison. INDICATIONS : Bilateral leg swelling. MEDICAL HISTORY : Hypercholesterolemia. Hypertension. Pulmonary Embolism. Anticoagulant therapy, Xarelto. Dyspnea. GOUT. Arthritis. SURGICAL HISTORY : Appendectomy. Back surgery. ENCOUNTER: Initial ACUITY: 2 day PAIN SCORE: 0/10 LOCATION: Bilateral legs. TECHNIQUE: Venous ultrasound of the left and right leg was performed from the inguinal ligament to the proximal calf. Real-time, color Doppler and spectral tracing, compression and augmentation techniques were us ed. FINDINGS: RIGHT LEG: There is normal compressibility of the deep venous system from the inguinal region to the proximal ca lf. No echogenic clot is seen in the lumen of the common femoral, femoral, popliteal, and posterior tibial veins. There is a normal response of the venous system to proximal and distal augmentation an d respiration. LEFT LEG: There is normal compressibility of the deep venous system from the inguinal region to the proximal ca lf. No echogenic clot is seen in the lumen of the common femoral, femoral, popliteal, and posterior tibial veins. There is a normal response of the venous system to proximal and distal augmentation an d respiration. CONCLUSION: No DVT in either lower extremity. Meng Potter MD on July 14, 2017 at 19:02 Board Certified Radiologist. This report was verified electronically.
[2017-07-14] MEDS: ATORVASTATIN 40 MG TAB PO SCH (21:17)
[2017-07-15] VITALS (10 sets, daily range): BP systolic 105–161; BP diastolic 62–95; PULSE 82–100; RESP 16–20; TEMP 96.2–100; O2SAT 95–98
[2017-07-15] MEDS: NITROGLYCERIN 2% OINT 1 GM PACKET TOPICAL SCH ×3 (04:50→17:45)
[2017-07-15 07:17] LABS: HEMATOCRIT 40.9 % (39.0-51.0); HEMOGLOBIN 13.7 GM/DL (13.0-17.0); MEAN CELL VOLUME 91.5 FL (80.0-100.0); MEAN CORPUSCULAR HEMOGLOBIN 30.6 PG (27.0-34.0); MEAN CORPUSCULAR HGB CONC 33.5 % (32.0-36.0); MEAN PLATELET VOLUME 9.2 FL (7.0-11.0); PLATELET COUNT 98 TH/MM3 (150-450); RED BLOOD COUNT 4.48 MIL/MM3 (4.50-5.90); RED CELL DISTRIBUTION WIDTH 14.6 % (11.6-17.2); WHITE BLOOD COUNT 4.7 TH/MM3 (4.0-11.0)
[2017-07-15 07:21] LABS: INTERNATIONAL NORMALIZED RATIO 1.2 RATIO; PROTHROMBIN TIME - PATIENT 12.1 SEC (9.8-11.6)
[2017-07-15 07:24] LABS: BICARBONATE 26.1 MEQ/L (21.0-32.0); CALCIUM 8.6 MG/DL (8.5-10.1)
[2017-07-15 07:28] LABS: CREATININE 1.9 MG/DL (0.60-1.30)
--- NOTE | 2017-07-15 07:59 | HHI.PR ---
Subjective Remarks Patient seen and examined today for follow-up on shortness of breath, NSTEMI, pleural effusion. Patient states that he is doing well. Still get short of breath. Swelling has improved. Awaiting further testing today. Vital signs are stable, patient remains afebrile. Objective Vitals Vital Signs Date Time Temp Pulse Resp B/P (MAP) Pulse Ox O2 Delivery O2 Flow Rate FiO2 07/15/17 04:45 99.6 90 18 116/70 (85) 95 07/15/17 00:40 99.9 82 16 143/91 (108) 96 07/14/17 20:40 99.3 98 16 128/80 (96) 98 07/14/17 20:00 101 07/14/17 19:57 97 Nasal Cannula 2.00 07/14/17 17:29 97.6 89 18 148/83 (104) 95 07/14/17 13:13 98.9 87 18 118/77 (91) 98 07/14/17 13:02 97 Nasal Cannula 2.00 07/14/17 09:04 97.8 96 18 133/79 (97) 98 I/O 07/14/17 07/14/17 07/14/17 07/15/17 07/15/17 07/15/17 07:00 15:00 23:00 07:00 15:00 23:00 Intake Total 642 ml Balance 642 ml Intake Oral 120 ml IV Total 522 ml # Voids 2 4 Result Diagram: 07/15/17 0640 07/15/17 0640 Objective Remarks GENERAL: Well-developed, well-nourished, in no acute distress. alert and orientated HEENT: Head is normocephalic without any lesions or masses noted. Facial features are symmetric. Eyes: Extraocular muscles are intact. Conjunctivae were clear. NECK: Supple without any masses. Trachea midline no deviation. No JVD, CARDIAC: Regular rhythm, regular rate. S1/S2 are heard. 2/6 ejection murmur noted in the mitral region, no gallops or rubs. LUNGS: Clear to auscultation bilaterally. No wheeze, rhonchi or rales. No use of accessory muscles on inspiration or expiration. ABDOMEN: Soft, nontender. Nondistended. Bowel sounds heard in all 4 quadrants. No organomegaly or masses. Negative rebound, negative guarding EXTREMITIES: 1+ bilateral lower extremity edema, pulses are equal bilaterally. No cyanosis or clubbing NEUROLOGY: Mood and affect appear appropriate. Cranial nerves II through XII grossly intact. Moving all extremities, speech is clear Urinary Catheter: No Vascular Central Line Catheter: No A/P Assessment and Plan Acute congestive heart failure, new onset -Chest x-ray does indicate bilateral pleural effusions, bilateral ill space abnormalities related to congestive heart failure -Patient with physical findings of lower extremity edema, JVD -BNP 1195 -Patient also has mild troponin elevation, could possible be underlying myocardial infarction -Continue Lasix 40 mg IV every 12 hours -Awaiting echocardiogram -Continue beta-nancy, ANTELMO inhibitor, Nitropaste -Consult cardiology for recommendations -[employer] 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 No previous EKGs to compare -Cardiac enzymes continue to be elevated. 0.22 -Continue aspirin, beta-nancy, ANTELMO inhibitor, statin, Nitropaste -Cardiology evaluated the patient Pleural effusion, unknown whether transudative versus exudative -Early Intervention Specialist following the patient -Early Intervention Specialist recommending thoracentesis with fluid studies -Early Intervention Specialist discussed with the radiologist who plans on doing ultrasound- guided thoracentesis this morning Chronic kidney disease stage III, appears to be stable -Continue to monitor renal function -Avoid nephrotoxic medication -Cardiology consulted nephrology for evaluation. -Early Intervention Specialist recommended low-dose IV fluids in order to help with kidney function Hypertension, hyperlipidemia, -Home medications continued History of pulmonary emboli -VQ scan shows ventilation defect, however no perfusion defect. This would go along with the congestive heart failure with low probability for pulmonary emboli -Lower extremity ultrasound did not indicate any DVTs -Early Intervention Specialist wants CT pulmonary angiogram performed to rule out pulmonary emboli, he discussed it with radiology concerning the renal functions DVT prevention -Sequential compression devices Ronald Vega July 15, 2017 07:58
[2017-07-15] MEDS: METOPROLOL TARTRATE 25 MG TAB PO SCH ×2 (08:18→22:25)
[2017-07-15] MEDS: LISINOPRIL 20 MG TAB PO SCH (08:18)
[2017-07-15] MEDS: POTASSIUM CHLORIDE 20 MEQ CONTROLLED RELEASE TAB PO SCH ×2 (08:18→22:25)
[2017-07-15] MEDS: SODIUM CHLORIDE 0.9% FLUSH 10 ML FLUSH IV FLUSH SCH ×2 (08:19→21:00)
--- NOTE | 2017-07-15 08:59 | PD.RAD ---
Post US Procedure Prog Note Pre Procedure Diagnosis: (1) Pleural effusion Post Procedure Diagnosis: (1) Pleural effusion Procedure Date: July 15, 2017 Supervising Radiologist: Shola Ricketts Proceduralist/Assist: Ial Cyr RDMS Estimated blood loss: minimal Anesthesia: Local Plan of Activity Patient to Unit: Other Patient Condition: Fair See PACS Report for procedural detail/treatment Drainage Procedure Procedure 1 Imaging Guidance: Ultrasound Side: Left Procedure Type: Thoracentesis Drainage: Suction Fluid Removal (CCs): 1100 Fluid Description: Clear, Yellow Plan post procedure cxr then monitor for 30 minutes and return to floor. Shola Ricketts MD July 15, 2017 08:59
[2017-07-15] MEDS ORDERED: IODIXANOL 320 MG/ML 10 ML VIAL (for Rad CT) IVCONTRAST ONE (09:23)
--- NOTE | 2017-07-15 09:23 | RADRPT ---
EXAM DATE/TIME: 07/15/2017 08:57 [facility] COMPARISON: CHEST SINGLE AP, July 13, 2017, 7:30. INDICATIONS : Post left side thoracentesis. MEDICAL HISTORY : Hypertension. Hypercholesterolemia SURGICAL HISTORY : Appendectomy. ENCOUNTER: Subsequent ACUITY: 3 days PAIN SCORE: 0/10 LOCATION: Left chest FINDINGS: Single view thorax demonstrates cardiomegaly. The left-sided effusion has been drained. There are mil d atelectatic changes within the left lung base. There is minimal effusion seen at the right base. Th ere are diffuse chronic interstitial changes within the pulmonary parenchyma. There is a very small loculated area of pneumothorax seen at the left lung base. This measures only a pproximately 5 mm in thickness and is localized along the lateral inferior margin of the left lung. The visualized bony structures are grossly intact. CONCLUSION: 1. Complete interval drainage of the patient's left pleural effusion. 2. There is a very minimal loculated area of pneumothorax seen at the left lung base. Napoleon Persaud MD on July 15, 2017 at 9:18 Board Certified Radiologist. This report was verified electronically.
[2017-07-15] MEDS ORDERED: LIDOCAINE HCL 1% 20 ML VIAL SQ ONE (09:34)
--- NOTE | 2017-07-15 09:42 | RADRPT ---
EXAM DATE/TIME: 07/15/2017 09:09 [facility] COMPARISON: CT PULMONARY ANGIOGRAM, December 21, 2015, 11:23. INDICATIONS : Short of breath. History of pulmonary embolism. IV CONTRAST: 50 cc Visipaque (iodixanol) IV RADIATION DOSE: 10.63 CTDIvol (mGy) MEDICAL HISTORY : Hypercholesterolemia. Hypertension. Pulmonary embolism. Anticoagulant therapy. Chronic kidney disease stage 3. SURGICAL HISTORY : Appendectomy. Back surgery. ENCOUNTER: Initial ACUITY: 3 days PAIN SCALE: 0/10 LOCATION: chest TECHNIQUE: Volumetric scanning of the chest was performed using a pulmonary embolism protocol MIP images were re constructed. Using automated exposure control and adjustment of the mA and/or kV according to patien t size, radiation dose was kept as low as reasonably achievable to obtain optimal diagnostic quality images. DICOM format image data is available electronically for review and comparison. Follow-up recommendations for detected pulmonary nodules are based at a minimum on nodule size and pa tient risk factors according to Fleischner Society Guidelines. FINDINGS: PULMONARY ARTERIES: No filling defects are seen in the pulmonary arteries through the segmental level. LUNGS: Patchy airspace consolidation in the lingula and left lower lobe as well as the inferior left upper l obe near the major fissure. Mild associated bronchiectasis. Minimal patchy groundglass opacities in t he right lung base. PLEURAE: Small simple density right-sided pleural effusion. MEDIASTINUM: The multiple subcentimeter mediastinal nodes with the largest measuring up to 9 mm in the AP window. Moderate coronary calcifications. Mild four-chamber cardiac enlargement. MUSCULOSKELETAL: Degenerative spondylosis of the thoracic spine. MISCELLANEOUS: The visualized upper abdominal organs demonstrate no acute abnormality. CONCLUSION: 1. No CT evidence for pulmonary artery embolism through the segmental level. 2. Patchy airspace consolidation in the left upper lobe inferiorly, lingula and left lower lobe alcides rning for multilobar pneumonia versus aspiration. 3. Small simple density right pleural effusion with associated right lower lobe compressive atelectas is. 4. Subcentimeter mediastinal adenopathy likely reactive/infectious in etiology. 5. Coronary artery calcifications with mild four-chamber cardiac enlargement. Freddy Lincoln MD on July 15, 2017 at 9:27 Board Certified Radiologist. This report was verified electronically.
[2017-07-15 11:21] LABS: PLEURAL FLUID LYMPHS 44 %; PLEURAL FLUID MESOTHELIAL 32 %; PLEURAL FLUID MONOS 22 %; PLEURAL FLUID POLYS (SEGS) 2 %; PLEURAL FLUID RBC 2320 /MM3 (0-0); PLEURAL FLUID WBC 331 /MM3 (0-10)
[2017-07-15] MEDS: SODIUM CHLOR 0.9% 1000 ML INJ 1,000 ML IV SCH (13:07)
[2017-07-15 14:31] LABS: TOTAL PROTEIN,PLEURAL FLUID 2.1 GM/DL
[2017-07-15] MEDS: LEVOFLOXACIN 500 MG TAB PO SCH (15:32)
[2017-07-15] MEDS: RESP: ALBUTEROL 2.5 MG/IPRATROPIUM 0.5 MG NEB (SCH) NEB ×2 (16:30→19:16)
--- NOTE | 2017-07-15 17:14 | PD.CARD.PN ---
Subjective Subjective Remarks Pt resting comfortably though says no change in dyspnea. Objective Medications Current Medications Medications (Trade) Dose Ordered Sig/Mari Route Start Time Stop Time Status Last Admin (NS Flush) 2 ml BID IV FLUSH 07/13/17 21:00 07/15/17 08:19 (NS Flush) 2 ml UNSCH PRN IV FLUSH 07/13/17 15:30 (Lasix Inj) 40 mg BID@09,18 IVP 07/13/17 18:00 Future Hold 07/14/17 09:27 (Aspirin Chew) 81 mg DAILY CHEW 07/14/17 09:00 Future Hold 07/14/17 09:26 (Lipitor) 80 mg HS PO 07/13/17 21:00 07/14/17 21:17 (Prinivil) 20 mg DAILY PO 07/14/17 09:00 07/15/17 08:18 (Tylenol) 650 mg Q4H PRN PO 07/13/17 15:45 (Zofran Inj) 4 mg Q6H PRN IV PUSH 07/13/17 15:45 (Colace) 100 mg BID PRN PO 07/13/17 15:45 (Milk Of Magnesia Liq) 30 ml DAILY PRN PO 07/13/17 15:45 (Tums Chew) 1,000 mg TID PRN CHEW 07/13/17 15:45 (Restoril) 15 mg HS PRN PO 07/13/17 15:45 (Nitroglycerin 2% Oint) 0.5 inch Q6HR TOPICAL 07/13/17 18:00 07/15/17 13:05 (Lopressor) 25 mg BID PO 07/13/17 21:00 07/15/17 08:18 (KCl) 20 meq Q12HR PO 07/13/17 21:00 07/15/17 08:18 Sodium Chloride 1,000 ml @ 42 mls/hr [id number] IV 07/14/17 14:30 07/15/17 13:07 (Levaquin) 500 mg Q48H PO 07/15/17 14:00 07/15/17 15:32 (Duoneb Neb) 1 ampule QID NEB NEB 07/15/17 16:00 Vital Signs / I&O Vital Signs Date Time Temp Pulse Resp B/P (MAP) Pulse Ox O2 Delivery O2 Flow Rate FiO2 07/15/17 16:30 98 Nasal Cannula 2.00 07/15/17 16:00 100.0 91 18 122/71 (88) 98 07/15/17 12:00 98.6 90 18 134/69 (90) 97 07/15/17 09:30 96.2 98 20 161/95 (117) 96 07/15/17 08:00 92 07/15/17 08:00 97.3 84 20 156/83 (107) 98 07/15/17 04:45 99.6 90 18 116/70 (85) 95 07/15/17 00:40 99.9 82 16 143/91 (108) 96 07/14/17 20:40 99.3 98 16 128/80 (96) 98 07/14/17 20:00 101 07/14/17 19:57 97 Nasal Cannula 2.00 07/14/17 17:29 97.6 89 18 148/83 (104) 95 I/O 07/14/17 07/14/17 07/14/17 07/15/17 07/15/17 07/15/17 07:00 15:00 23:00 07:00 15:00 23:00 Intake Total 642 ml 252 ml Balance 642 ml 252 ml Intake Oral 120 ml IV Total 522 ml 252 ml # Voids 2 4 Physical Exam GENERAL: This is a well-nourished, well-developed patient, in no apparent distress. CARDIOVASCULAR: Regular rate and rhythm without murmurs, gallops, or rubs. RESPIRATORY: Clear to auscultation. Breath sounds equal bilaterally. No wheezes , rales, or rhonchi. GASTROINTESTINAL: Abdomen soft, non-tender, nondistended. Normal active bowel sounds MUSCULOSKELETAL: Extremities without clubbing, cyanosis, or edema. NEURO: Alert & Oriented x4 to person, place, time, situation. Moves all ext x4 Laboratory Laboratory Tests Test 07/14/17 23:30 07/15/17 06:40 07/15/17 08:56 Urine Osmolality 375 MOSM/KG White Blood Count 4.7 TH/MM3 Red Blood Count 4.48 MIL/MM3 Hemoglobin 13.7 GM/DL Hematocrit 40.9 % Mean Corpuscular Volume 91.5 FL Mean Corpuscular Hemoglobin 30.6 PG Mean Corpuscular Hemoglobin Concent 33.5 % Red Cell Distribution Width 14.6 % Platelet Count 98 TH/MM3 Mean Platelet Volume 9.2 FL Prothrombin Time 12.1 SEC Prothromb Time International Ratio 1.2 RATIO Activated Partial Thromboplast Time 30.7 SEC Blood Urea Nitrogen 38 MG/DL Creatinine 1.90 MG/DL Random Glucose 96 MG/DL Calcium Level 8.6 MG/DL Lactate Dehydrogenase 242 U/L Sodium Level 137 MEQ/L Potassium Level 3.8 MEQ/L Chloride Level 101 MEQ/L Carbon Dioxide Level 26.1 MEQ/L Anion Gap 10 MEQ/L Estimat Glomerular Filtration Rate 34 ML/MIN Pleural Fluid pH 8.0 Pleural Fluid WBC 331 /MM3 Pleural Fluid RBC 2320 /MM3 Pleural Fluid Neutrophils 2 % Pleural Fluid Lymphocytes 44 % Pleural Fluid Monocytes 22 % Pleural Fluid Mesothelial Cells 32 % Pleural Fluid Total Protein 2.1 GM/DL Pleural Fluid LDH 67 U/L Pleural Fluid Glucose 100 MG/DL Imaging Last 24 hours Impressions Chest X-Ray 07/15/17 0000 Signed Impressions: Service Date/Time: Saturday, July 15, 2017 08:57 - CONCLUSION: 1. Complete interval drainage of the patient's left pleural effusion. 2. There is a very minimal loculated area of pneumothorax seen at the left lung base. Napoleon Persaud MD CT Angiography 07/15/17 0000 Signed Impressions: Service Date/Time: Saturday, July 15, 2017 09:09 - CONCLUSION: 1. No CT evidence for pulmonary artery embolism through the segmental level. 2. Patchy airspace consolidation in the left upper lobe inferiorly, lingula and left lower lobe concerning for multilobar pneumonia versus aspiration. 3. Small simple density right pleural effusion with associated right lower lobe compressive atelectasis. 4. Subcentimeter mediastinal adenopathy likely reactive/infectious in etiology. 5. Coronary artery calcifications with mild four-chamber cardiac enlargement. Freddy Lincoln MD Assessment and Plan Problem List: (1) Elevated troponin ICD Codes: R74.8 - Abnormal levels of other serum enzymes Status: Acute Plan: nonspecific particularly given EKATERINA; no symptoms c/w ACS; possibly from chf, though not clear, echo pending. Would favor a nuc stress at some point, though probably not with active pneumonia. (2) Congestive heart failure ICD Codes: I50.9 - Heart failure, unspecified Plan: somewhat unclear, elevated bnp though w/ EKATERINA; didn't particularly improve symptom sanders despite diuresis, echo pending. IV lasix was stopped, he doesn't seem particularly overloaded so will not restart at this time, await echo. (3) Pneumonia ICD Codes: J18.9 - Pneumonia, unspecified organism Plan: By ct scan, on abx (4) Pleural effusion ICD Codes: J90 - Pleural effusion, not elsewhere classified Plan: now s/p thoracentesis, though pt says no improvement in symptoms. Assessment and Plan At this time it seems his symptoms are most likey pulmonary in origin, echo report pending. I will ask one of my partners to see tomorrow. Kush Vale MD July 15, 2017 17:14
--- NOTE | 2017-07-15 17:34 | ECHRPT ---
Indication: HEART FAILURE CONCLUSIONS Normal left ventricular size. Mild concentric left ventricular hypertrophy. The left ventricular systolic function is moderately reduced with an estimated ejection fraction in the range of 40-45%. Meab-de-yznnrmxr mitral valve regurgitation. Aortic valve sclerosis is present. Mild aortic valve regurgitation. There is trace tricuspid valve regurgitation. The estimated pulmonary arterial pressure is 40 mmHg. Mild pulmonary valve regurgitation. BP: 134 / 69 HR: 90 Rhythm: Sinus MEASUREMENTS (Male / Female) Normal Values Technical Quality:Fair 2D ECHO LV Diastolic Diameter PLAX 4.5 cm 4.2 - 5.9 / 3.9 - 5.3 cm LV Systolic Diameter PLAX 3.2 cm IVS Diastolic Thickness 1.3 cm 0.6 - 1.0 / 0.6 - 0.9 cm LVPW Diastolic Thickness 1.3 cm 0.6 - 1.0 / 0.6 - 0.9 cm LV Relative Wall Thickness 0.6 RV Internal Dim ED PLAX 2.0 cm LVOT Diameter 2.4 cm Aortic Root Diameter 3.5 cm LA Systolic Diameter LX 3.5 cm 3.0 - 4.0 / 2.7 - 3.8 cm M-MODE AV Cusp Separation MM 1.5 cm DOPPLER AV Peak Velocity 146.0 cm/s AV Peak Gradient 8.5 mmHg AV Mean Gradient 5.0 mmHg AV Velocity Time Integral 28.6 cm LVOT Peak Velocity 120.0 cm/s LVOT Peak Gradient 5.8 mmHg LVOT Velocity Time Integral 17.7 cm AV Area Cont Eq vti 2.8 cm AV Area Cont Eq pk 3.7 cm Mitral E Point Velocity 89.8 cm/s Mitral A Point Velocity 38.5 cm/s Mitral E to A Ratio 2.3 LV E' Lateral Velocity 4.2 cm/s Mitral E to LV E' Lateral Ratio 21.5 LV E' Septal Velocity 4.0 cm/s Mitral E to LV E' Septal Ratio 22.4 TR Peak Velocity 274.0 cm/s TR Peak Gradient 30.0 mmHg Right Atrial Pressure 10.0 mmHg Pulmonary Artery Systolic Pressu 40.0 mmHg Right Ventricular Systolic Press 40.0 mmHg PV Peak Velocity 44.4 cm/s PV Peak Gradient 0.8 mmHg FINDINGS LEFT VENTRICLE Normal left ventricular size. Mild concentric left ventricular hypertrophy. The left ventricular systolic function is moderately reduced with an estimated ejection fraction in the range of 40-45%. RIGHT VENTRICLE Normal right ventricular size and systolic function. LEFT ATRIUM The left atrial size is normal. RIGHT ATRIUM The right atrial size is normal. ATRIAL SEPTUM No atrial level shunt is demonstrated by color flow Doppler interrogation. AORTA The aortic root and proximal ascending aorta are normal in size on limited imaging. MITRAL VALVE [id number] mitral valve regurgitation. AORTIC VALVE Aortic valve sclerosis is present. Mild aortic valve regurgitation. TRICUSPID VALVE There is trace tricuspid valve regurgitation. The estimated pulmonary arterial pressure is 40 mmHg. PULMONARY VALVE Mild pulmonary valve regurgitation. VESSELS The inferior vena cava is normal in size. PERICARDIUM No pericardial effusion. Mahendra Foote MD, FACC, [facility] [place] (Electronically Signed) Final Date:15 Jul 2017 17:33
[2017-07-15] MEDS: ATORVASTATIN 40 MG TAB PO SCH (22:25)
[2017-07-16] VITALS (9 sets, daily range): BP systolic 95–123; BP diastolic 57–69; PULSE 80–92; RESP 19–20; TEMP 96.5–99.3; O2SAT 96–99
[2017-07-16] MEDS: NITROGLYCERIN 2% OINT 1 GM PACKET TOPICAL SCH ×4 (00:46→12:56)
[2017-07-16 06:52] LABS: AUTOMATED NEUTROPHIL # 3.5 TH/MM3 (1.8-7.7); BASOPHIL % 0.3 % (0.0-2.0); HEMATOCRIT 36.7 % (39.0-51.0); HEMOGLOBIN 11.6 GM/DL (13.0-17.0); LYMPH % 15.3 % (9.0-44.0); LYMPHOCYTE # 0.8 TH/MM3 (1.0-4.8); MEAN CELL VOLUME 91.7 FL (80.0-100.0); MEAN CORPUSCULAR HEMOGLOBIN 28.9 PG (27.0-34.0); MEAN CORPUSCULAR HGB CONC 31.5 % (32.0-36.0); MEAN PLATELET VOLUME 8.9 FL (7.0-11.0); MONO % 11.3 % (0.0-8.0); MONOCYTE # 0.6 TH/MM3 (0-0.9); NEUT % 73.1 % (16.0-70.0); PLATELET COUNT 72 TH/MM3 (150-450); RED BLOOD COUNT 3.99 MIL/MM3 (4.50-5.90); RED CELL DISTRIBUTION WIDTH 14.5 % (11.6-17.2); WHITE BLOOD COUNT 4.9 TH/MM3 (4.0-11.0)
[2017-07-16 07:23] LABS: BICARBONATE 23.5 MEQ/L (21.0-32.0); CALCIUM 7.7 MG/DL (8.5-10.1); CREATININE 1.7 MG/DL (0.60-1.30); MAGNESIUM 1.7 MG/DL (1.5-2.5)
[2017-07-16] MEDS: RESP: ALBUTEROL 2.5 MG/IPRATROPIUM 0.5 MG NEB (SCH) NEB ×4 (08:49→19:40)
[2017-07-16] MEDS: SODIUM CHLORIDE 0.9% FLUSH 10 ML FLUSH IV FLUSH SCH ×2 (09:00→20:50)
[2017-07-16] MEDS: POTASSIUM CHLORIDE 20 MEQ CONTROLLED RELEASE TAB PO SCH ×2 (09:11→20:48)
[2017-07-16] MEDS: LISINOPRIL 20 MG TAB PO SCH (09:11)
[2017-07-16] MEDS: METOPROLOL TARTRATE 25 MG TAB PO SCH ×2 (09:11→20:48)
--- NOTE | 2017-07-16 10:31 | HHI.PR ---
Subjective Remarks Patient seen and examined today for follow-up on shortness of breath, NSTEMI, pleural effusion. Patient seen and examined, sitting up in chair comfortably on 2LNC. at bedside. Patient states that he is much improved. Participating with PT, mild SOB with exertion. Vital signs are stable, patient remains afebrile. Objective Vitals Vital Signs Date Time Temp Pulse Resp B/P (MAP) Pulse Ox O2 Delivery O2 Flow Rate FiO2 07/16/17 08:54 98 Nasal Cannula 2.00 07/16/17 08:00 98.7 87 20 113/64 (80) 97 07/16/17 04:06 97.5 85 20 95/57 (70) 97 07/16/17 00:09 99.3 92 20 102/59 (73) 96 07/15/17 20:15 99.8 100 20 105/62 (76) 96 07/15/17 20:00 99 07/15/17 19:16 97 Nasal Cannula 2.00 07/15/17 16:30 98 Nasal Cannula 2.00 07/15/17 16:00 100.0 91 18 122/71 (88) 98 07/15/17 12:00 98.6 90 18 134/69 (90) 97 I/O 07/15/17 07/15/17 07/15/17 07/16/17 07/16/17 07/16/17 07:00 15:00 23:00 07:00 15:00 23:00 Intake Total 642 ml 252 ml 480 ml 120 ml Balance 642 ml 252 ml 480 ml 120 ml Intake Oral 120 ml 480 ml 120 ml IV Total 522 ml 252 ml # Voids 4 3 0 Result Diagram: 07/16/17 0532 07/16/17 0532 Imaging Last Impressions Chest X-Ray 07/15/17 0000 Signed Impressions: Service Date/Time: Saturday, July 15, 2017 08:57 - CONCLUSION: 1. Complete interval drainage of the patient's left pleural effusion. 2. There is a very minimal loculated area of pneumothorax seen at the left lung base. Napoleon Persaud MD CT Angiography 07/15/17 0000 Signed Impressions: Service Date/Time: Saturday, July 15, 2017 09:09 - CONCLUSION: 1. No CT evidence for pulmonary artery embolism through the segmental level. 2. Patchy airspace consolidation in the left upper lobe inferiorly, lingula and left lower lobe concerning for multilobar pneumonia versus aspiration. 3. Small simple density right pleural effusion with associated right lower lobe compressive atelectasis. 4. Subcentimeter mediastinal adenopathy likely reactive/infectious in etiology. 5. Coronary artery calcifications with mild four-chamber cardiac enlargement. Freddy Lincoln MD Renal Ultrasound 07/14/17 0000 Signed Impressions: Service Date/Time: Friday, July 14, 2017 18:02 - CONCLUSION: 1. Pleural effusions. 2. Possible 6 mm right renal calculus. 3. Echogenic kidneys which can be seen with medical renal disease. Meng Potter MD Lower Extremity Ultrasound 07/14/17 0000 Signed Impressions: Service Date/Time: Friday, July 14, 2017 18:18 - CONCLUSION: No DVT in either lower extremity. Meng Potter MD Lung Scan-VQ Nuclear Medicine 07/13/17 0000 Signed Impressions: Service Date/Time: Thursday, July 13, 2017 13:28 - CONCLUSION: Consolidation left lower lobe. Large ventilation perfusion match. Low to intermediate probability. Lenny Persaud MD FACR Objective Remarks GENERAL: Well-developed, well-nourished, in no acute distress. alert and orientated HEENT: Head is normocephalic without any lesions or masses noted. Facial features are symmetric. Eyes: Extraocular muscles are intact. Conjunctivae were clear. NECK: Supple without any masses. Trachea midline no deviation. No JVD, CARDIAC: Regular rhythm, regular rate. S1/S2 are heard. 2/6 ejection murmur noted in the mitral region, no gallops or rubs. LUNGS: Clear to auscultation bilaterally. No wheeze, rhonchi or rales. No use of accessory muscles on inspiration or expiration. ABDOMEN: Soft, nontender. Nondistended. Bowel sounds heard in all 4 quadrants. No organomegaly or masses. Negative rebound, negative guarding EXTREMITIES: Trace bilateral lower extremity edema, pulses are equal bilaterally. No cyanosis or clubbing NEUROLOGY: Mood and affect appear appropriate. Cranial nerves II through XII grossly intact. Moving all extremities, speech is clear A/P Problem List: (1) Congestive heart failure ICD Code: I50.9 - Heart failure, unspecified (2) Elevated troponin ICD Code: R74.8 - Abnormal levels of other serum enzymes Status: Acute Assessment and Plan Acute congestive heart failure, new onset -Chest x-ray does indicate bilateral pleural effusions, bilateral ill space abnormalities related to congestive heart failure -Patient with physical findings of lower extremity edema, JVD. -BNP 1195 -Patient also has mild troponin elevation, could possible be underlying myocardial infarction -Continue Lasix 40 mg IV every 12 hours -Echocardiogram with moderate left ventricular systolic function reduction EF 40 -45%. -Continue beta-nancy, ANTELMO inhibitor, Nitropaste -Cardiology following for recommendations. 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 No previous EKGs to compare -Cardiac enzymes continue to be elevated. 0.22 -Continue aspirin, beta-nancy, ANTELMO inhibitor, statin, Nitropaste -Cardiology evaluated the patient Pleural effusion, exudative -Aircraft Tool Maker following the patient, recommended thoracentesis with fluid studies. -Underwent ultrasound-guided thoracentesis yesterday 1,000 ml output. Chronic kidney disease stage III, appears to be stable -Continue to monitor renal function -Avoid nephrotoxic medication -Cardiology consulted nephrology for evaluation. -Aircraft Tool Maker recommended low-dose IV fluids in order to help with kidney function Hypertension, hyperlipidemia, -Home medications continued History of pulmonary emboli -VQ scan shows ventilation defect, however no perfusion defect. This would go along with the congestive heart failure with low probability for pulmonary emboli -Lower extremity ultrasound did not indicate any DVTs -CT pulmonary angiogram performed to rule out pulmonary emboli, patchy airspace consolidation in the left upper lobe. DVT prevention -Sequential compression devices Jayla Franco July 16, 2017 10:31
--- NOTE | 2017-07-16 12:23 | HHI.PR ---
Subjective Remarks He is better. On o2 2 L . Diuresing well. No leg swelling Objective Vital Signs Date Time Temp Pulse Resp B/P (MAP) Pulse Ox O2 Delivery O2 Flow Rate FiO2 07/16/17 08:54 98 Nasal Cannula 2.00 07/16/17 08:00 98.7 87 20 113/64 (80) 97 07/16/17 04:06 97.5 85 20 95/57 (70) 97 07/16/17 00:09 99.3 92 20 102/59 (73) 96 07/15/17 20:15 99.8 100 20 105/62 (76) 96 07/15/17 20:00 99 07/15/17 19:16 97 Nasal Cannula 2.00 07/15/17 16:30 98 Nasal Cannula 2.00 07/15/17 16:00 100.0 91 18 122/71 (88) 98 I/O 07/15/17 07/15/17 07/15/17 07/16/17 07/16/17 07/16/17 07:00 15:00 23:00 07:00 15:00 23:00 Intake Total 642 ml 252 ml 480 ml 120 ml Balance 642 ml 252 ml 480 ml 120 ml Intake Oral 120 ml 480 ml 120 ml IV Total 522 ml 252 ml # Voids 4 3 0 Result Diagram: 07/16/17 0532 07/16/17 0532 Objective Remarks GENERAL: Well nourished/well developed patient in no apparent distress CARDIOVASCULAR: Irregular rate and rhythm without murmurs, gallops or rubs. RESPIRATORY: Bibasilar crackles.and wheezes. GASTROINTESTINAL: Abdomen soft, non-tender, nondistended. Normal active bowel sounds MUSCULOSKELETAL: Extremities without clubbing, cyanosis, but with 1+ pitting edema. NEURO: Alert & Oriented x4 to person, place, time, and situation. Moves all ext x4 Assessment and Plan Assessment and Plan (1) Renal insufficiency ICD Codes: N28.9 - Disorder of kidney and ureter, unspecified Status: Acute Rpt BMP (2) Hypertension ICD Codes: I10 - Essential (primary) hypertension Status: Acute Plan: Continue current medication regimen (3) Congestive heart failure ICD Codes: I50.9 - Heart failure, unspecified Diuresis (4) Pleural effusion ICD Codes: J90 - Pleural effusion, not elsewhere classified Rpt Chest Xray. (5) Respiratory failure resolved. (6) Hemoptysis. Will need to consider Bronchoscopy when clinically stable Nicole Danielson MD July 16, 2017 12:23
[2017-07-16] MEDS: SODIUM CHLOR 0.9% 1000 ML INJ 1,000 ML IV SCH (12:56)
--- NOTE | 2017-07-16 13:05 | MB ---
cc: Nicole Danielson MD DATE: 07/16/2017 REASON FOR CONSULTATION: Respiratory insufficiency and hemoptysis with pulmonary edema. HISTORY OF PRESENT ILLNESS: This is an 86-year-old white male with a past history of hypertension, gouty arthritis, hyperlipidemia and a history of atrial arrhythmias who was admitted to the emergency room with mild hemoptysis and edema of the legs. The patient had no chest pains; however, he was orthopneic and dyspneic with minimal activity and had to be placed on oxygen. He was complaining of some tightness in his chest, as well as having nausea and coughing spells. He was treated for CHF placed on O2 and diuresed and presently on 2 liters of oxygen maintaining his saturations over 94%. His troponin was elevated and cardiac evaluation is in progress including an echocardiogram. PAST MEDICAL HISTORY: The patient's past history is significant for gout and hyperlipidemia, history of pulmonary embolism and DVT. History of hypertension and surgery includes appendectomy. HABITS: The patient did smoke in the past for about 5 years, a pack per day and quit at age 23. Drinks alcohol occasionally. MEDICATION LIST: 1. Atorvastatin 80 mg a day. 2. Metoprolol 25 mg daily. 3. Lisinopril 20 mg a day. ALLERGIES: NONE LISTED. FAMILY HISTORY: Significant for lung cancer in his father and mother had a gynecologic cancer. SYSTEM REVIEW: The patient has lost weight. He is orthopneic. He has cough. He has hemoptysis. He has wheezing. He has epigastric distress and nausea. He has urinary frequency. He has joint pains of his extremities and has some anxiety attacks. PHYSICAL EXAMINATION: GENERAL: This averagely built elderly man is pale and mildly dyspneic at rest. VITAL SIGNS: Blood pressure is 150/70. Pulse is 92, respirations 22, temperature 98.2. HEENT: Head is normocephalic. Pupils are reactive. Sclerae were injected. Throat was clear. Nasal mucosa is clear. NECK: Supple with mild venous distention at 45 degrees. Trachea midline. No thyroid enlargement. CHEST: Equal movements with basilar crackles more so on the right side. There are occasional wheezes bilaterally. HEART: The heart sounds are irregular, S1 and S2 with no murmur or gallop. ABDOMEN: Soft, protuberant, no tenderness, no organomegaly. The bowel sounds are active. EXTREMITIES: 2+ edema with decreased pulses. Reflexes are 1+ with no gross motor deficits. NEUROLOGIC: Cranial nerves area grossly intact. SKIN: No lesions are noted. DIAGNOSTIC DATA: Chest x-ray demonstrated a large left effusion which has been drained and presently small bilateral effusions were noted with mild vascular congestion. IMPRESSION: 1. Congestive heart failure, resolving. 2. Chronic kidney disease, stage III. 3. Hypertension. 4. Hemoptysis, etiology undetermined. 5. History of pulmonary embolism and history of deep venous thrombosis. PLAN: The patient had a CTA of the chest which shows no pulmonary emboli. He is on anticoagulation and presently his hemoptysis is resolving. We will keep him on antibiotic coverage for the lower lobe infiltrates for a possible pneumonia and place him on Levaquin 500 mg every 48 hours. Pulmonary function study to be done at the bedside. Sputum has been sent for gram stain and culture and cytology. Nebulized DuoNeb solution added t.i.d. and p.r.n. and when he is clinically stable and diuresed well, consideration will be given for bronchoscopy as well. Thank you, Dr. Fritz for this consultation. VYunior Danielson MD VJD/WANDER , 12:30 PM , 01:04 PM
--- NOTE | 2017-07-16 13:12 | RADRPT ---
EXAM DATE/TIME: 07/14/2017 17:50 [facility] COMPARISON: CT PULMONARY ANGIOGRAM, July 15, 2017, 9:09. CHEST EXPIRATION ONLY, July 15, 2017, 8:57. INDICATIONS : Left pleural effusion. MEDICAL HISTORY : Hypercholesterolemia. Hypertension. Arthritis. Pulmonary embolism. Sputum production. Dyspnea. Hemopt ysis. Gout. Pleural effusion. Anticoagulant therapy. SURGICAL HISTORY : Appendectomy. Back surgery. ENCOUNTER: Initial ACUITY: 2 days PAIN SCORE: 0/10 LOCATION: Left chest FLUID: Total volume of 1,100 cc of clear, yellow fluid was removed. Fluid was sent to lab for ordered studies. TECHNIQUE: 1. Ultrasound guidance for thoracentesis. 2. Thoracentesis. The risks, benefits, and alternatives to ultrasound guided thoracentesis were explained to the patien t in lay simple terms, including the risk of bleeding and infection. Written and verbal informed con sent was obtained. Appropriate area for thoracentesis was marked under ultrasound guidance with the patient in the uprig ht position. Overlying skin was prepped and draped in the usual sterile fashion and with local anest hetic, a dermatotomy was made with an 11 blade scalpel. A 6 Mosotho thoracentesis catheter was placed in the pleural space and fluid was removed. Catheter was then removed and a sterile dressing applie d. There were no immediate complications. The patient tolerated the procedure well and the left the ultrasound suite in stable condition. Chest radiograph is to be obtained. CONCLUSION: Uncomplicated ultrasound guided left thoracentesis with removal of 1.1 L of fluid. Shola Ricketts MD on July 16, 2017 at 13:08 Board Certified Radiologist. This report was verified electronically.
--- NOTE | 2017-07-16 13:32 | PD.CARD.PN ---
Subjective Subjective Remarks The patient denies chest pain or other cardiac symptoms. He has mild dyspnea which is improved. There are no GI symptoms or bleeding or hemoptysis. Telemetry shows sinus rhythm. Echocardiogram shows 40-45% EF with mild to moderate MR and mild AI. Objective Medications Current Medications Medications (Trade) Dose Ordered Sig/Mari Route Start Time Stop Time Status Last Admin (NS Flush) 2 ml BID IV FLUSH 07/13/17 21:00 07/15/17 08:19 (NS Flush) 2 ml UNSCH PRN IV FLUSH 07/13/17 15:30 (Lasix Inj) 40 mg BID@,18 IVP 07/13/17 18:00 Future Hold 07/14/17 09:27 (Aspirin Chew) 81 mg DAILY CHEW 07/14/17 09:00 Future Hold 07/14/17 09:26 (Lipitor) 80 mg HS PO 07/13/17 21:00 07/15/17 22:25 (Prinivil) 20 mg DAILY PO 07/14/17 09:00 07/16/17 09:11 (Tylenol) 650 mg Q4H PRN PO 07/13/17 15:45 (Zofran Inj) 4 mg Q6H PRN IV PUSH 07/13/17 15:45 (Colace) 100 mg BID PRN PO 07/13/17 15:45 (Milk Of Magnesia Liq) 30 ml DAILY PRN PO 07/13/17 15:45 (Tums Chew) 1,000 mg TID PRN CHEW 07/13/17 15:45 (Restoril) 15 mg HS PRN PO 07/13/17 15:45 (Nitroglycerin 2% Oint) 0.5 inch Q6HR TOPICAL 07/13/17 18:00 07/16/17 12:56 (Lopressor) 25 mg BID PO 07/13/17 21:00 07/16/17 09:11 (KCl) 20 meq Q12HR PO 07/13/17 21:00 07/16/17 09:11 Sodium Chloride 1,000 ml @ 42 mls/hr [id number] IV 07/14/17 14:30 07/16/17 12:56 (Levaquin) 500 mg Q48H PO 07/15/17 14:00 07/15/17 15:32 (Duoneb Neb) 1 ampule QID NEB NEB 07/15/17 16:00 07/16/17 08:49 Vital Signs / I&O Vital Signs Date Time Temp Pulse Resp B/P (MAP) Pulse Ox O2 Delivery O2 Flow Rate FiO2 07/16/17 12:00 98.0 80 19 96/69 (78) 96 07/16/17 08:54 98 Nasal Cannula 2.00 07/16/17 08:00 98.7 87 20 113/64 (80) 97 07/16/17 04:06 97.5 85 20 95/57 (70) 97 07/16/17 00:09 99.3 92 20 102/59 (73) 96 07/15/17 20:15 99.8 100 20 105/62 (76) 96 07/15/17 20:00 99 07/15/17 19:16 97 Nasal Cannula 2.00 07/15/17 16:30 98 Nasal Cannula 2.00 07/15/17 16:00 100.0 91 18 122/71 (88) 98 I/O 07/15/17 07/15/17 07/15/17 07/16/17 07/16/17 07/16/17 07:00 15:00 23:00 07:00 15:00 23:00 Intake Total 642 ml 252 ml 480 ml 120 ml Balance 642 ml 252 ml 480 ml 120 ml Intake Oral 120 ml 480 ml 120 ml IV Total 522 ml 252 ml # Voids 4 3 0 Physical Exam GENERAL: Well-nourished, well-developed patient in no apparent distress. SKIN: Warm and dry. NECK: JVD normal - less than or equal to 5 cm H20. CARDIOVASCULAR: Decreased rate and rhythm without murmurs, gallops, or rubs. RESPIRATORY: Normal breath sounds - equal bilaterally. No accessory muscle use. No wheezes, rales or rubs. PERIPHERY: No cyanosis, or edema. Laboratory Laboratory Tests Test 07/16/17 05:32 White Blood Count 4.9 TH/MM3 Red Blood Count 3.99 MIL/MM3 Hemoglobin 11.6 GM/DL Hematocrit 36.7 % Mean Corpuscular Volume 91.7 FL Mean Corpuscular Hemoglobin 28.9 PG Mean Corpuscular Hemoglobin Concent 31.5 % Red Cell Distribution Width 14.5 % Platelet Count 72 TH/MM3 Mean Platelet Volume 8.9 FL Neutrophils (%) (Auto) 73.1 % Lymphocytes (%) (Auto) 15.3 % Monocytes (%) (Auto) 11.3 % Eosinophils (%) (Auto) 0.0 % Basophils (%) (Auto) 0.3 % Neutrophils # (Auto) 3.5 TH/MM3 Lymphocytes # (Auto) 0.8 TH/MM3 Monocytes # (Auto) 0.6 TH/MM3 Eosinophils # (Auto) 0.0 TH/MM3 Basophils # (Auto) 0.0 TH/MM3 CBC Comment AUTO DIFF Differential Comment AUTO DIFF CONFIRMED Platelet Estimate LOW Platelet Morphology Comment NORMAL Blood Urea Nitrogen 39 MG/DL Creatinine 1.70 MG/DL Random Glucose 102 MG/DL Calcium Level 7.7 MG/DL Magnesium Level 1.7 MG/DL Sodium Level 139 MEQ/L Potassium Level 4.0 MEQ/L Chloride Level 105 MEQ/L Carbon Dioxide Level 23.5 MEQ/L Anion Gap 11 MEQ/L Estimat Glomerular Filtration Rate 39 ML/MIN Imaging Last 48 hours Impressions Thoracentesis Ultrasound 07/15/17 0000 Signed Impressions: Service Date/Time: Friday, July 14, 2017 17:50 - CONCLUSION: Uncomplicated ultrasound guided left thoracentesis with removal of 1.1 L of fluid. Shola Ricketts MD Chest X-Ray 07/15/17 0000 Signed Impressions: Service Date/Time: Saturday, July 15, 2017 08:57 - CONCLUSION: 1. Complete interval drainage of the patient's left pleural effusion. 2. There is a very minimal loculated area of pneumothorax seen at the left lung base. Napoleon Persaud MD CT Angiography 07/15/17 0000 Signed Impressions: Service Date/Time: Saturday, July 15, 2017 09:09 - CONCLUSION: 1. No CT evidence for pulmonary artery embolism through the segmental level. 2. Patchy airspace consolidation in the left upper lobe inferiorly, lingula and left lower lobe concerning for multilobar pneumonia versus aspiration. 3. Small simple density right pleural effusion with associated right lower lobe compressive atelectasis. 4. Subcentimeter mediastinal adenopathy likely reactive/infectious in etiology. 5. Coronary artery calcifications with mild four-chamber cardiac enlargement. Freddy Lincoln MD Assessment and Plan Assessment and Plan Problems: Possible congestive heart failure, unspecified. Elevated troponin-nonspecific Hemoptysis Possible pneumonia ITP Hypertension/hyperlipidemia Chronic kidney disease. Recommendations: The patient is a poor candidate for catheterization both on the basis of his platelet count and hemoptysis. He also has chronic kidney disease. I will continue present medical management. The etiology of his shortness of breath is probably multifactorial. I will switch him from topical to oral nitrates. We will be available if needed. He will need a 2-3 week follow-up with our group. All questions were answered to the patient, and son. Golden Blanca MD July 16, 2017 13:32
--- NOTE | 2017-07-16 14:28 | RADRPT ---
EXAM DATE/TIME: 07/16/2017 13:53 [facility] COMPARISON: CHEST EXPIRATION ONLY, July 15, 2017, 8:57. CHEST SINGLE AP, July 13, 2017, 7:30. INDICATIONS : Difficulty breathing. Pleural effusion per order. MEDICAL HISTORY : Hypercholesterolemia. Hypertension. Pulmonary embolism. Anticoagulant therapy. Chronic kidney disease stage 3. SURGICAL HISTORY : Appendectomy. Back surgery. ENCOUNTER: Subsequent ACUITY: 3 days PAIN SCORE: 0/10 LOCATION: Bilateral chest FINDINGS: Reaccumulation of a small left-sided pleural effusion with associated airspace disease in the left ephraim ng base. Cardiovascular contours are stable. Remainder of exam is unchanged. CONCLUSION: 1. Reaccumulation of small left pleural effusion following thoracentesis on 07/14/17 with associated a irspace disease in the left lung base, presumably compressive atelectasis. Freddy Lincoln MD on July 16, 2017 at 14:24 Board Certified Radiologist. This report was verified electronically.
[2017-07-16] MEDS: ATORVASTATIN 40 MG TAB PO SCH (20:48)
[2017-07-17] VITALS (9 sets, daily range): BP systolic 92–119; BP diastolic 52–72; PULSE 68–86; RESP 18–20; TEMP 96.7–97.8; O2SAT 94–100
[2017-07-17 06:16] LABS: AUTOMATED NEUTROPHIL # 2.6 TH/MM3 (1.8-7.7); BASOPHIL % 0.3 % (0.0-2.0); EOSINOPHIL % 0.5 % (0.0-4.0); HEMATOCRIT 35.7 % (39.0-51.0); HEMOGLOBIN 11.2 GM/DL (13.0-17.0); LYMPH % 16.4 % (9.0-44.0); LYMPHOCYTE # 0.6 TH/MM3 (1.0-4.8); MEAN CELL VOLUME 90.4 FL (80.0-100.0); MEAN CORPUSCULAR HEMOGLOBIN 28.3 PG (27.0-34.0); MEAN CORPUSCULAR HGB CONC 31.3 % (32.0-36.0); MONO % 14.8 % (0.0-8.0); MONOCYTE # 0.6 TH/MM3 (0-0.9); PLATELET COUNT 68 TH/MM3 (150-450); RED BLOOD COUNT 3.96 MIL/MM3 (4.50-5.90); RED CELL DISTRIBUTION WIDTH 14.8 % (11.6-17.2); WHITE BLOOD COUNT 3.8 TH/MM3 (4.0-11.0)
[2017-07-17 06:17] LABS: CALCIUM 7.9 MG/DL (8.5-10.1)
[2017-07-17 06:18] LABS: BICARBONATE 23.7 MEQ/L (21.0-32.0)
[2017-07-17 06:21] LABS: CREATININE 1.7 MG/DL (0.60-1.30)
[2017-07-17] MEDS: RESP: ALBUTEROL 2.5 MG/IPRATROPIUM 0.5 MG NEB (SCH) NEB ×4 (07:26→20:13)
--- NOTE | 2017-07-17 08:18 | RADRPT ---
EXAM DATE/TIME: 07/17/2017 08:01 [facility] COMPARISON: US LEG BILATERAL VENOUS DOPPLER, July 14, 2017, 18:18. INDICATIONS : Left pleural effusion. MEDICAL HISTORY : Hypercholesterolemia. Hypertension. Pulmonary Embolism. Anticoagulant therapy, Xarelto. Dyspnea. GOUT . Arthritis. Pleural effusion. SURGICAL HISTORY : Appendectomy. Back surgery. Thoracentesis. ENCOUNTER: Initial ACUITY: 2 days PAIN SCORE: 0/10 LOCATION: Left chest MEASUREMENTS: SKIN TO PARIETAL PLEURA: 1.95 cm SKIN TO MAX SAFE DEPTH: 3.89 cm ESTIMATED FLUID VOLUME: 271.41 cc FLUID COMPOSITION: simple FINDINGS: Pleural effusion as above. A taryn was placed on the skin surface superficial to the pleural fluid col lection. CONCLUSION: There is minimal pleural effusion on the left estimated volume is approximately 200 cc per Napoleon Persaud MD on July 17, 2017 at 8:15 Board Certified Radiologist. This report was verified electronically.
--- NOTE | 2017-07-17 08:48 | HHI.PR ---
Subjective Remarks Follow-up shortness of breath, N STEMI and pleural effusion. Patient seen and examined sitting on commode vomiting with complaints of diarrhea. Past walk test. Not requiring supplemental O2 comfortable on room air. Participating with PT. at bedside and updated. Did eat breakfast, with complaints of nausea and vomiting no abdominal pain. No shortness of breath. Vital Signs stable. Afebrile. Objective Vitals Vital Signs Date Time Temp Pulse Resp B/P (MAP) Pulse Ox O2 Delivery O2 Flow Rate FiO2 07/17/17 08:00 97.8 86 18 119/72 (88) 96 07/17/17 07:28 98 Nasal Cannula 2.00 07/17/17 04:00 97.7 85 20 115/67 (83) 97 07/17/17 00:00 97.6 85 20 112/71 (85) 98 07/16/17 20:00 96.5 91 20 123/67 (85) 99 07/16/17 19:40 98 Nasal Cannula 2.00 07/16/17 16:00 98.7 83 20 112/60 (77) 99 07/16/17 12:00 98.0 80 19 96/69 (78) 96 07/16/17 08:54 98 Nasal Cannula 2.00 I/O 07/16/17 07/16/17 07/16/17 07/17/17 07/17/17 07/17/17 07:00 15:00 23:00 07:00 15:00 23:00 Intake Total 120 ml 900 ml 1200 ml Output Total 850 ml Balance 120 ml 50 ml 1200 ml Intake Oral 120 ml 900 ml 1200 ml Output Urine Total 850 ml # Voids 0 2 # Bowel Movements 1 0 Result Diagram: 07/17/17 0515 07/17/17 0515 Imaging Last Impressions Chest Ultrasound 07/17/17 0000 Signed Impressions: Service Date/Time: Monday, July 17, 2017 08:01 - CONCLUSION: There is minimal pleural effusion on the left estimated volume is approximately 200 cc per Napoleon Persaud MD Chest X-Ray 07/16/17 0000 Signed Impressions: Service Date/Time: Sunday, July 16, 2017 13:53 - CONCLUSION: 1. Reaccumulation of small left pleural effusion following thoracentesis on 07/14/17 with associated airspace disease in the left lung base, presumably compressive atelectasis. Freddy Bozorgmanesh, MD Thoracentesis Ultrasound 07/15/17 0000 Signed Impressions: Service Date/Time: Friday, July 14, 2017 17:50 - CONCLUSION: Uncomplicated ultrasound guided left thoracentesis with removal of 1.1 L of fluid. Shola Ricketts MD CT Angiography 07/15/17 0000 Signed Impressions: Service Date/Time: Saturday, July 15, 2017 09:09 - CONCLUSION: 1. No CT evidence for pulmonary artery embolism through the segmental level. 2. Patchy airspace consolidation in the left upper lobe inferiorly, lingula and left lower lobe concerning for multilobar pneumonia versus aspiration. 3. Small simple density right pleural effusion with associated right lower lobe compressive atelectasis. 4. Subcentimeter mediastinal adenopathy likely reactive/infectious in etiology. 5. Coronary artery calcifications with mild four-chamber cardiac enlargement. Freddy Lincoln MD Renal Ultrasound 07/14/17 0000 Signed Impressions: Service Date/Time: Friday, July 14, 2017 18:02 - CONCLUSION: 1. Pleural effusions. 2. Possible 6 mm right renal calculus. 3. Echogenic kidneys which can be seen with medical renal disease. Meng Potter MD Lower Extremity Ultrasound 07/14/17 0000 Signed Impressions: Service Date/Time: Friday, July 14, 2017 18:18 - CONCLUSION: No DVT in either lower extremity. Meng Potter MD Lung Scan-[facility] Nuclear Medicine 07/13/17 0000 Signed Impressions: Service Date/Time: Thursday, July 13, 2017 13:28 - CONCLUSION: Consolidation left lower lobe. Large ventilation perfusion match. Low to intermediate probability. Lenny Persaud MD FACR Objective Remarks GENERAL: Well-developed, well-nourished, in no acute distress. alert and orientated HEENT: Head is normocephalic without any lesions or masses noted. Facial features are symmetric. Eyes: Extraocular muscles are intact. Conjunctivae were clear. NECK: Supple without any masses. Trachea midline no deviation. No JVD, CARDIAC: Regular rhythm, regular rate. S1/S2 are heard. 2/6 ejection murmur noted in the mitral region, no gallops or rubs. LUNGS: Clear to auscultation bilaterally. No wheeze, rhonchi or rales. No use of accessory muscles on inspiration or expiration. ABDOMEN: Soft, nontender. Nondistended. Bowel sounds heard in all 4 quadrants. No organomegaly or masses. Negative rebound, negative guarding EXTREMITIES: Trace bilateral lower extremity edema, pulses are equal bilaterally. No cyanosis or clubbing NEUROLOGY: Mood and affect appear appropriate. Cranial nerves II through XII grossly intact. Moving all extremities, speech is clear A/P Problem List: (1) Congestive heart failure ICD Code: I50.9 - Heart failure, unspecified (2) Elevated troponin ICD Code: R74.8 - Abnormal levels of other serum enzymes Status: Acute Assessment and Plan Acute congestive heart failure, new onset -Chest x-ray does indicate bilateral pleural effusions, bilateral ill space abnormalities related to congestive heart failure -Patient with physical findings of lower extremity edema, JVD. These have improved. -BNP 1195. -Patient also has mild troponin elevation, could possible be underlying myocardial infarction. -Continue Lasix 40 mg IV every 12 hours. -Echocardiogram with moderate left ventricular systolic function reduction EF 40 -45%. -Continue beta-nancy, ANTELMO inhibitor, Nitropaste Dcd. Cards placed on Imdur -Cardiology following for recommendations. -Lay Out Machine Operator requested shed boss evaluation due to history of PE and pleural effusions Nausea, vomiting and diarrhea - Zofran given IV. Ineffective. Will try Phenergan suppository. - Check stool studies. - Supportive care. Non-ST elevated myocardial infarction -EKGs do indicate some abnormality with show inverted T waves in V1, V5, V6. No previous EKGs to compare -Cardiac enzymes continue to be elevated. 0.22 -Continue aspirin, beta-nancy, ANTELMO inhibitor, statin, Stop nitropace, placed on Imdur. -Cardiology evaluated the patient Pleural effusion, exudative -Tile Finisher following the patient, recommended thoracentesis with fluid studies. -Underwent ultrasound-guided thoracentesis 1,000 ml output. - Repeat x-ray showing mild accumulation. US chest showing 200 ml. Supportive care, will continue to monitor. Now comfortable on RA. Chronic kidney disease stage III, appears to be stable -Continue to monitor renal function -Avoid nephrotoxic medication -Cardiology consulted nephrology for evaluation. Signed off. Now at baseline. -Tile Finisher recommended low-dose IV fluids in order to help with kidney function, will continue due to nausea and vomiting and diarrhea. Hypertension, hyperlipidemia, -Home medications continued History of pulmonary emboli -VQ scan shows ventilation defect, however no perfusion defect. This would go along with the congestive heart failure with low probability for pulmonary emboli -Lower extremity ultrasound did not indicate any DVTs -CT pulmonary angiogram performed to rule out pulmonary emboli, patchy airspace consolidation in the left upper lobe. DVT prevention -Sequential compression devices Jayla Franco July 17, 2017 08:48
[2017-07-17] MEDS: LISINOPRIL 20 MG TAB PO SCH (08:51)
[2017-07-17] MEDS: METOPROLOL TARTRATE 25 MG TAB PO SCH ×2 (08:51→20:20)
[2017-07-17] MEDS: ISOSORBIDE MONONITRATE 30 MG CR TAB (IMDUR) PO SCH (08:51)
[2017-07-17] MEDS: POTASSIUM CHLORIDE 20 MEQ CONTROLLED RELEASE TAB PO SCH ×2 (08:53→20:20)
[2017-07-17] MEDS: SODIUM CHLORIDE 0.9% FLUSH 10 ML FLUSH IV FLUSH SCH ×2 (08:54→20:20)
--- NOTE | 2017-07-17 10:15 | HHI.FF ---
Face to Face Verification Diagnosis: (1) Pneumonia (2) Congestive heart failure (3) Pleural effusion Home Health Nursing Order: Medical education Signs/symptoms of disease process Oxygen administration education Medication education-adverse effect Nursing assessment with vital signs I have seen patient Petar Villalba on 07/17/17. My clinical findings support the need for the requested home health care services because: Patient has SOB Deconditioned w/ increased weakness I certify that my clinical findings support that this patient is homebound because: Unsteady gait/balance Jayla Franco July 17, 2017 10:15
[2017-07-17] MEDS ORDERED: PROMETHAZINE HCL 25 MG SUPP RECTAL ONE (11:45)
[2017-07-17] MEDS: LEVOFLOXACIN 500 MG TAB PO SCH (15:00)
--- NOTE | 2017-07-17 17:53 | HHI.PR ---
Subjective Remarks Had some nausea and vomiting today. On Room air sat 94. . Diuresing well. US of chest shows a small effusion No leg swelling Objective Vital Signs Date Time Temp Pulse Resp B/P (MAP) Pulse Ox O2 Delivery O2 Flow Rate FiO2 07/17/17 16:00 97.7 83 18 92/52 (65) 100 07/17/17 12:00 97.8 68 18 104/69 (81) 100 07/17/17 08:00 97.8 86 18 119/72 (88) 96 07/17/17 07:28 98 Nasal Cannula 2.00 07/17/17 04:00 97.7 85 20 115/67 (83) 97 07/17/17 00:00 97.6 85 20 112/71 (85) 98 07/16/17 20:00 96.5 91 20 123/67 (85) 99 07/16/17 19:40 98 Nasal Cannula 2.00 I/O 07/16/17 07/16/17 07/16/17 07/17/17 07/17/17 07/17/17 07:00 15:00 23:00 07:00 15:00 23:00 Intake Total 120 ml 900 ml 1200 ml Output Total 850 ml Balance 120 ml 50 ml 1200 ml Intake Oral 120 ml 900 ml 1200 ml Output Urine Total 850 ml # Voids 0 2 # Bowel Movements 1 0 Result Diagram: 07/17/17 0515 07/17/17 0515 Objective Remarks GENERAL: Well nourished/well developed patient in no apparent distress CARDIOVASCULAR: Irregular rate and rhythm without murmurs, gallops or rubs. RESPIRATORY:Occ Bibasilar crackles.and no wheezes. GASTROINTESTINAL: Abdomen soft, non-tender, nondistended. Normal active bowel sounds MUSCULOSKELETAL: Extremities without clubbing, cyanosis, but with 1+ pitting edema. NEURO: Alert & Oriented x4 to person, place, time, and situation. Moves all ext x4. Skin : No Lesions Assessment and Plan Assessment and Plan (1) Renal insufficiency ICD Codes: N28.9 - Disorder of kidney and ureter, unspecified Rpt BMP (2) Hypertension ICD Codes: I10 - Essential (primary) hypertension Plan: Continue current medication regimen (3) Congestive heart failure ICD Codes: I50.9 - Heart failure, unspecified Diuresis as ordered (4) Pleural effusion ICD Codes: J90 - Pleural effusion, not elsewhere classified Small left effusion. No need for thoracentesis (5) Respiratory failure resolved. (6) Hemoptysis. Resolved. Nicole Danielson MD July 17, 2017 17:53
[2017-07-17] MEDS: ATORVASTATIN 40 MG TAB PO SCH (20:20)
[2017-07-18] VITALS: BP 94/55; PULSE 88; RESP 16; TEMP 97.1; O2SAT 95
[2017-07-18 04:00] VITALS: BP 115/58; PULSE 95; RESP 18; TEMP 98.4; O2SAT 95
[2017-07-18] MEDS: ISOSORBIDE MONONITRATE 30 MG CR TAB (IMDUR) PO SCH (05:40)
--- NOTE | 2017-07-18 06:28 | RADRPT ---
EXAM DATE/TIME: 07/18/2017 06:01 [facility] COMPARISON: CHEST PA & LAT, December 21, 2015, 10:24. INDICATIONS : Shortness of breath MEDICAL HISTORY : Hypercholesterolemia. Hypertension. Pulmonary embolism. Anticoagulant therapy. Chronic kidney disease stage 3. SURGICAL HISTORY : Appendectomy. Back surgery. ENCOUNTER: Subsequent ACUITY: 4 - 6 days PAIN SCORE: 0/10 LOCATION: Bilateral chest FINDINGS: PA and lateral views of the chest showing left lower lobe infiltrate. Right lung is clear. No effusio ns. Heart is normal in size. A degenerative spine. CONCLUSION: Left lower lobe pneumonia. Jerome Mason Jr., MD on July 18, 2017 at 6:25 Board Certified Radiologist. This report was verified electronically.
--- NOTE | 2017-07-18 08:15 | HHI.PR ---
Subjective Remarks Follow-up shortness of breath, NSTEMI and pleural effusion. Patient seen and examined, sitting up in chair in no apparent distress. Much improved today. States he is eager to get home. Denies any shortness of breath. Abdominal pain , nausea and vomiting have improved. Has been eating well. Vital signs are stable. Afebrile. Will discharge home for follow-up with pulmonology, cardiology and PCP. Objective Vitals Vital Signs Date Time Temp Pulse Resp B/P (MAP) Pulse Ox O2 Delivery O2 Flow Rate FiO2 07/18/17 04:00 98.4 95 18 115/58 (77) 95 07/18/17 00:00 97.1 88 16 94/55 (68) 95 07/17/17 20:13 94 21 07/17/17 20:05 82 07/17/17 20:00 96.7 85 18 100/58 (72) 95 07/17/17 16:00 97.7 83 18 92/52 (65) 100 07/17/17 12:00 97.8 68 18 104/69 (81) 100 I/O 07/17/17 07/17/17 07/17/17 07/18/17 07/18/17 07/18/17 07:00 15:00 23:00 07:00 15:00 23:00 Intake Total 1200 ml 600 ml 240 ml Balance 1200 ml 600 ml 240 ml Intake Oral 1200 ml 600 ml 240 ml # Voids 2 3 3 # Bowel Movements 0 0 Result Diagram: 07/17/17 0515 07/17/17 0515 Imaging Last Impressions Chest X-Ray 07/18/17 0600 Signed Impressions: Service Date/Time: July 06:01 - CONCLUSION: Left lower lobe pneumonia. Jerome Mason Jr., MD Chest Ultrasound 07/17/17 0000 Signed Impressions: Service Date/Time: Monday, July 17, 2017 08:01 - CONCLUSION: There is minimal pleural effusion on the left estimated volume is approximately 200 cc per Napoleon Persaud MD Thoracentesis Ultrasound 07/15/17 0000 Signed Impressions: Service Date/Time: Friday, July 14, 2017 17:50 - CONCLUSION: Uncomplicated ultrasound guided left thoracentesis with removal of 1.1 L of fluid. Shola Ricketts MD CT Angiography 07/15/17 0000 Signed Impressions: Service Date/Time: Saturday, July 15, 2017 09:09 - CONCLUSION: 1. No CT evidence for pulmonary artery embolism through the segmental level. 2. Patchy airspace consolidation in the left upper lobe inferiorly, lingula and left lower lobe concerning for multilobar pneumonia versus aspiration. 3. Small simple density right pleural effusion with associated right lower lobe compressive atelectasis. 4. Subcentimeter mediastinal adenopathy likely reactive/infectious in etiology. 5. Coronary artery calcifications with mild four-chamber cardiac enlargement. Freddy Lincoln MD Renal Ultrasound 07/14/17 0000 Signed Impressions: Service Date/Time: Friday, July 14, 2017 18:02 - CONCLUSION: 1. Pleural effusions. 2. Possible 6 mm right renal calculus. 3. Echogenic kidneys which can be seen with medical renal disease. Meng Potter MD Lower Extremity Ultrasound 07/14/17 0000 Signed Impressions: Service Date/Time: Friday, July 14, 2017 18:18 - CONCLUSION: No DVT in either lower extremity. Meng Potter MD Lung Scan-V Nuclear Medicine 07/13/17 0000 Signed Impressions: Service Date/Time: Thursday, July 13, 2017 13:28 - CONCLUSION: Consolidation left lower lobe. Large ventilation perfusion match. Low to intermediate probability. Lenny Persaud MD FACR Objective Remarks GENERAL: Well-developed, well-nourished, in no acute distress. alert and orientated HEENT: Head is normocephalic without any lesions or masses noted. Facial features are symmetric. Eyes: Extraocular muscles are intact. Conjunctivae were clear. NECK: Supple without any masses. Trachea midline no deviation. No JVD, CARDIAC: Regular rhythm, regular rate. S1/S2 are heard. 2/6 ejection murmur noted in the mitral region, no gallops or rubs. LUNGS: Clear to auscultation bilaterally. No wheeze, rhonchi or rales. No use of accessory muscles on inspiration or expiration. ABDOMEN: Soft, nontender. Nondistended. Bowel sounds heard in all 4 quadrants. No organomegaly or masses. Negative rebound, negative guarding EXTREMITIES: Trace bilateral lower extremity edema, pulses are equal bilaterally. No cyanosis or clubbing NEUROLOGY: Mood and affect appear appropriate. Cranial nerves II through XII grossly intact. Moving all extremities, speech is clear A/P Problem List: (1) Congestive heart failure ICD Code: I50.9 - Heart failure, unspecified (2) Elevated troponin ICD Code: R74.8 - Abnormal levels of other serum enzymes Status: Acute Assessment and Plan Acute congestive heart failure, new onset -Initiate chest x-ray does indicate bilateral pleural effusions, bilateral ill space abnormalities related to congestive heart failure -Patient with physical findings of lower extremity edema, JVD. These have improved. -BNP 1195. -Patient also has mild troponin elevation, could possible be underlying myocardial infarction. -Continue Lasix 40 mg IV every 12 hours. -Echocardiogram with moderate left ventricular systolic function reduction EF 40 -45%. -Continue beta-nancy, ANTELMO inhibitor, Nitropaste Dcd. Cards placed on Imdur -Cardiology following for recommendations. -Cylinder Steamer requested supply tech evaluation due to history of PE and pleural effusions Nausea, vomiting and diarrhea. Improved. - Zofran given IV. Ineffective. Will try Phenergan suppository. This was effective. - Check stool studies. Patient has no longer any diarrhea. - Supportive care. Pneumonia -Chest x-ray reviewed from today showing left lower lobe pneumonia. Patient has been on Levaquin. We will continue upon discharge. Follow-up pulmonology. Non-ST elevated myocardial infarction -EKGs do indicate some abnormality with show inverted T waves in V1, V5, V6. No previous EKGs to compare -Cardiac enzymes continue to be elevated. 0.22 -Continue aspirin, beta-nancy, ANTELMO inhibitor, statin, Stop nitropace, placed on Imdur. -Cardiology evaluated the patient Pleural effusion, exudative -Spray Gun Sizer following the patient, recommended thoracentesis with fluid studies. -Underwent ultrasound-guided thoracentesis 1,000 ml output. - Repeat x-ray showing mild accumulation. US chest showing 200 ml. Supportive care, will continue to monitor. Now comfortable on RA. -We will discharge home for follow-up with pulmonology. Patient is on room air comfortably. No shortness of breath. Chronic kidney disease stage III, appears to be stable -Continue to monitor renal function -Avoid nephrotoxic medication -Cardiology consulted nephrology for evaluation. Signed off. Now at baseline. -Spray Gun Sizer recommended low-dose IV fluids in order to help with kidney function, will continue due to nausea and vomiting and diarrhea. Will discontinue now patient is tolerating p.o. intake. Hypertension, hyperlipidemia, -Home medications continued History of pulmonary emboli -VQ scan shows ventilation defect, however no perfusion defect. This would go along with the congestive heart failure with low probability for pulmonary emboli -Lower extremity ultrasound did not indicate any DVTs -CT pulmonary angiogram performed to rule out pulmonary emboli, patchy airspace consolidation in the left upper lobe. DVT prevention -Sequential compression devices Discharge Planning Discharge home today. Jayla Franco July 18, 2017 08:15
[2017-07-18] MEDS: RESP: ALBUTEROL 2.5 MG/IPRATROPIUM 0.5 MG NEB (SCH) NEB ×2 (08:23→12:40)
--- NOTE | 2017-07-18 08:23 | HHI.DS ---
Discharge Summary Admission Date July 13, 2017 at 14:13 Discharge Date: July 18, 2017 Admitting Diagnosis CHF, chronic kidney injury,l elevated troponin, hx of pe (1) Congestive heart failure ICD Code: I50.9 - Heart failure, unspecified Diagnosis: Principal (2) Elevated troponin ICD Code: R74.8 - Abnormal levels of other serum enzymes Diagnosis: Principal Status: Acute Procedures See below. Brief History - From Admission 86-year-old male with known history of hypertension, hyperlipidemia, gouty arthritis who presented to the hospital because of lower extremity edema, chest tightness, shortness of breath, dyspnea on exertion. Patient states that for over 2-3 weeks he has been experiencing progressive lower extremity edema, dyspnea on exertion, chest discomfort. Patient states that he was evaluated by his finisher denture and primary medical doctor within the last 3 weeks as well. States that they have done multiple laboratory studies and they gave him some medication for treatment which he does not know the name of. He indicates that he started developing lower extremity edema with progressive dyspnea on exertion where he used to build walk 30 paces without resting, however now he cannot even get up and walk because he is so short of breath. Patient indicates that he is actually been feeling some pressure in the middle part of his chest without any radiation to the neck, back, shoulder, arm. He has had episodes of nausea, vomiting which he correlates with coughing. He states that he was also experiencing lightheaded dizziness during these last few weeks. Patient does not have a local academic administrator. He has never been diagnosed with any congestive heart failure or myocardial infarction. Patient denies any previous cardiac workup with stress testing. Patient was concerned about his symptoms that were not get any better so he came to emergency department for evaluation. Workup did indicate significant swelling in his lower extremities, JVD, chest x-ray with pulmonary edema, bilateral effusions, mildly elevated troponin level. Because of those reasons is recommended patient be admitted for further evaluation and management. CBC/BMP: 07/17/17 0515 07/17/17 0515 Significant Findings Laboratory Tests Test 07/15/17 08:56 07/16/17 05:32 07/17/17 05:15 Pleural Fluid WBC 331 /MM3 (0-10) Pleural Fluid RBC 2320 /MM3 (0-0) Red Blood Count 3.99 MIL/MM3 (4.50-5.90) 3.96 MIL/MM3 (4.50-5.90) Hemoglobin 11.6 GM/DL (13.0-17.0) 11.2 GM/DL (13.0-17.0) Hematocrit 36.7 % (39.0-51.0) 35.7 % (39.0-51.0) Mean Corpuscular Hemoglobin Concent 31.5 % (32.0-36.0) 31.3 % (32.0-36.0) Platelet Count 72 TH/MM3 (150-450) 68 TH/MM3 (150-450) Neutrophils (%) (Auto) 73.1 % (16.0-70.0) Monocytes (%) (Auto) 11.3 % (0.0-8.0) 14.8 % (0.0-8.0) Lymphocytes # (Auto) 0.8 TH/MM3 (1.0-4.8) 0.6 TH/MM3 (1.0-4.8) Platelet Estimate LOW (NORMAL) LOW (NORMAL) Blood Urea Nitrogen 39 MG/DL (7-18) 39 MG/DL (7-18) Creatinine 1.70 MG/DL (0.60-1.30) 1.70 MG/DL (0.60-1.30) Calcium Level 7.7 MG/DL (8.5-10.1) 7.9 MG/DL (8.5-10.1) Estimat Glomerular Filtration Rate 39 ML/MIN (>89) 39 ML/MIN (>89) White Blood Count 3.8 TH/MM3 (4.0-11.0) Imaging Last Impressions Chest X-Ray 07/18/17 0600 Signed Impressions: Service Date/Time: July 06:01 - CONCLUSION: Left lower lobe pneumonia. Jerome Mason Jr., MD Chest Ultrasound 07/17/17 0000 Signed Impressions: Service Date/Time: Monday, July 17, 2017 08:01 - CONCLUSION: There is minimal pleural effusion on the left estimated volume is approximately 200 cc per Napoleon Persaud MD Thoracentesis Ultrasound 07/15/17 0000 Signed Impressions: Service Date/Time: Friday, July 14, 2017 17:50 - CONCLUSION: Uncomplicated ultrasound guided left thoracentesis with removal of 1.1 L of fluid. Shola Ricketts MD CT Angiography 07/15/17 0000 Signed Impressions: Service Date/Time: Saturday, July 15, 2017 09:09 - CONCLUSION: 1. No CT evidence for pulmonary artery embolism through the segmental level. 2. Patchy airspace consolidation in the left upper lobe inferiorly, lingula and left lower lobe concerning for multilobar pneumonia versus aspiration. 3. Small simple density right pleural effusion with associated right lower lobe compressive atelectasis. 4. Subcentimeter mediastinal adenopathy likely reactive/infectious in etiology. 5. Coronary artery calcifications with mild four-chamber cardiac enlargement. Freddy Lincoln MD Renal Ultrasound 07/14/17 0000 Signed Impressions: Service Date/Time: Friday, July 14, 2017 18:02 - CONCLUSION: 1. Pleural effusions. 2. Possible 6 mm right renal calculus. 3. Echogenic kidneys which can be seen with medical renal disease. Meng Potter MD Lower Extremity Ultrasound 07/14/17 0000 Signed Impressions: Service Date/Time: Friday, July 14, 2017 18:18 - CONCLUSION: No DVT in either lower extremity. Meng Potter MD Lung Scan-V Nuclear Medicine 07/13/17 0000 Signed Impressions: Service Date/Time: Thursday, July 13, 2017 13:28 - CONCLUSION: Consolidation left lower lobe. Large ventilation perfusion match. Low to intermediate probability. Lenny Persaud MD FACR PE at Discharge GENERAL: Well-developed, well-nourished, in no acute distress. alert and orientated HEENT: Head is normocephalic without any lesions or masses noted. Facial features are symmetric. Eyes: Extraocular muscles are intact. Conjunctivae were clear. NECK: Supple without any masses. Trachea midline no deviation. No JVD, CARDIAC: Regular rhythm, regular rate. S1/S2 are heard. 2/6 ejection murmur noted in the mitral region, no gallops or rubs. LUNGS: Clear to auscultation bilaterally. No wheeze, rhonchi or rales. No use of accessory muscles on inspiration or expiration. ABDOMEN: Soft, nontender. Nondistended. Bowel sounds heard in all 4 quadrants. No organomegaly or masses. Negative rebound, negative guarding EXTREMITIES: Trace bilateral lower extremity edema, pulses are equal bilaterally. No cyanosis or clubbing NEUROLOGY: Mood and affect appear appropriate. Cranial nerves II through XII grossly intact. Moving all extremities, speech is clear Pt update on day of discharge Follow-up shortness of breath, NSTEMI and pleural effusion. Patient seen and examined, sitting up in chair in no apparent distress. Much improved today. States he is eager to get home. Denies any shortness of breath. Abdominal pain , nausea and vomiting have improved. Has been eating well. Vital signs are stable. Afebrile. Will discharge home for follow-up with pulmonology, cardiology and PCP. Hospital Course Patient with acute congestive heart failure, new onset. Initial chest x-ray does indicate bilateral pleural effusions, bilateral ill space abnormalities related to congestive heart failure. Patient with physical findings of lower extremity edema, JVD initially. BNP 1195 on presentation. Patient also has mild troponin elevation, could possible be underlying myocardial infarction. Was given IV diuretics. Echocardiogram with moderate left ventricular systolic function reduction EF 40-45%. Continue beta-nancy, ANTELMO inhibitor, Nitropaste Dcd. Cards placed on Imdur. Director Data Analytics requested finisher denture evaluation due to history of PE and pleural effusions. Pulmonology followed patient during hospitalization. Chest x-ray did show left lower lobe pneumonia. Patient was placed on Levaquin. Will continue upon discharge. Have patient follow-up with pulmonology upon discharge. Was found that patient had a pleural effusion, underwent thoracentesis at 1100 mL's out. Repeat x-ray showing small accumulation. No intervention at this time. Patient had nausea and vomiting diarrhea during hospitalization 1 day. This is resolved. Chronic kidney disease stage III, appears to be stable. Creatinine 1.7 upon discharge, this is patient's baseline. It did appear that patient's troponins were mildly elevated. This is possibly due to multifactorial reasons. EKGs do indicate some abnormality with show inverted T waves in V1, V5, V6. No previous EKGs to compare. Patient was placed on aspirin, beta-nancy, ANTELMO, statin and Imdur. Follow-up cardiology outpatient. Patient does have hypertension hyperlipidemia, home medications were continued. Patient has a history of pulmonary emboli VQ scan shows ventilation defect, however no perfusion defect. This would go along with the congestive heart failure with low probability for pulmonary emboli. Lower extremity ultrasound did not indicate any DVTs. CT pulmonary angiogram performed to rule out pulmonary emboli, patchy airspace consolidation in the left upper lobe. Patient has improved on discharge today. Agreeable to follow- up with specialist and PCP. Prescriptions written as ordered. Pt Condition on Discharge: Stable Discharge Disposition: Disch w/ Home Health Serv Discharge Time: > 30 minutes Discharge Instructions DIET: Follow Instructions for: Heart Healthy Diet Speech Therapy-Diet Recommends: Regular Activities you can perform: Regular-No Restrictions Follow up Referrals: Cardiology - 2 Weeks with Golden Blanca MD PCP Follow-up - 1 Week Pulmonology - 1 Week with Nicole Danielson MD New Medications: Furosemide (Lasix) 40 Mg Tab 20 MG PO DAILY for diuretic for 30 Days, #15 TAB 0 Refills Aspirin (Tgt Aspirin) 81 Mg Chw 81 MG CHEW DAILY for CAD for 30 Days, #30 EA Isosorbide Mononitrate ER (Isosorbide Mononitrate ER) 30 Mg Alirio 30 MG PO DAILY@07 for CAD for 30 Days, #30 TAB Levofloxacin (Levaquin) 500 Mg Tablet 500 MG PO Q48H for infection for 10 Days, #5 TAB Potassium Chloride Microencaps (Potassium Chloride Microencaps) 20 Meq Tab 10 MEQ PO DAILY for supplementation for 30 Days, #30 TAB Continued Medications: Atorvastatin (Atorvastatin) 80 Mg Tab 80 MG PO HS for Cholesterol Management, #30 TAB 0 Refills Cholecalciferol (Vitamin D-1000) 1,000 Unit Tab 5000 UNITS PO DAILY for Nutritional Supplement, #1 BOTTLE 0 Refills Cyanocobalamin ER (Vitamin B-12 ER) 1,000 Mcg Tab 1000 MCG PO DAILY for Nutritional Supplement, #1 BOTTLE 0 Refills Lisinopril (Lisinopril) 20 Mg Tab 20 MG PO DAILY, #30 TAB 0 Refills Metoprolol Tartrate (Metoprolol Tartrate) 25 Mg Tab 25 MG PO DAILY, #30 TAB 0 Refills Jayla Franco July 18, 2017 08:23
[2017-07-18 08:24] VITALS: O2SAT 97
[2017-07-18] MEDS ORDERED: LEVA500T33 PO (08:27)
[2017-07-18] MEDS ORDERED: ISOS30TA3 PO (08:27)
[2017-07-18] MEDS ORDERED: POTA20TA5 PO (08:29)
[2017-07-18] MEDS ORDERED: ASPI81 CHEW (08:29)
[2017-07-18] MEDS ORDERED: FURO1TAB60 PO (08:29)
[2017-07-18 08:31] VITALS: BP 125/64; PULSE 86; RESP 19; TEMP 96.3; O2SAT 98
[2017-07-18] MEDS: LISINOPRIL 20 MG TAB PO SCH (08:41)
[2017-07-18] MEDS: POTASSIUM CHLORIDE 20 MEQ CONTROLLED RELEASE TAB PO SCH (08:41)
[2017-07-18] MEDS: SODIUM CHLORIDE 0.9% FLUSH 10 ML FLUSH IV FLUSH SCH (08:42)
[2017-07-18] MEDS: METOPROLOL TARTRATE 25 MG TAB PO SCH (08:42)
[2017-07-18 12:02] VITALS: BP 105/59; PULSE 80; RESP 19; TEMP 96.3; O2SAT 99
== END 2017-07-18 13:38 | disposition home health service (06) | DRG 280 ==
LOC: PHED 06:38 → PHEDA 14:13 → PH3A 16:20
PROVIDERS: ADMIT Hospitalist; ATTEND Hospitalist
PROC: 0W9B3ZZ Drainage of Left Pleural Cavity, Percutaneous Approach (ICD-10-PCS; principal; 2017-07-14)
DX: I13.0 Hypertensive heart and chronic kidney disease with heart failure and stage 1 through stage 4 chronic kidney disease, or unspecified chronic kidney disease (principal); J18.9 Pneumonia, unspecified organism; I21.4 Non-ST elevation (NSTEMI) myocardial infarction; N17.9 Acute kidney failure, unspecified; D69.3 Immune thrombocytopenic purpura; J44.0 Chronic obstructive pulmonary disease with (acute) lower respiratory infection; R04.2 Hemoptysis; J91.8 Pleural effusion in other conditions classified elsewhere; N18.3 Chronic kidney disease, stage 3 (moderate); E78.5 Hyperlipidemia, unspecified; I50.9 Heart failure, unspecified; H91.90 Unspecified hearing loss, unspecified ear; M10.9 Gout, unspecified; R11.2 Nausea with vomiting, unspecified; R19.7 Diarrhea, unspecified; R80.9 Proteinuria, unspecified; Z86.711 Personal history of pulmonary embolism; Z79.01 Long term (current) use of anticoagulants; Z86.718 Personal history of other venous thrombosis and embolism; Z87.891 Personal history of nicotine dependence
CPT/HCPCS: 32555; 36600; 71045; 71046; 71275; 76604; 76775; 78582; 80048; 80053; 80061; 81001; 82550; 82805; 82945; 83615; 83735; 83880; 83935; 83986; 84157; 84484; 85025; 85027; 85379; 85610; 85730; 87015; 87070; 87102; 87116; 87205; 87206; 88112; 88305; 89051; 93005; 93306; 93970; 94060; 94618; 94640; 94664; 99285; A9540; A9567; C1729; J1940; J2405; J7030; Q9967